=== PATIENT | male | born 1950 | race Caucasian/White ===

== ENCOUNTER 2019-01-16 07:08 | Inpatient (IN) ==
[2019-01-16] MEDS ORDERED: Nitroglycerin 0.4 MG TAB.SUBL SL PRN (07:09)
[2019-01-16] MEDS ORDERED: Aspirin 81 MG TAB.CHEW PO ONE (07:09)
--- NOTE | 2019-01-16 07:21 | Emergency Department Note ---
Disposition Clinical Impression: Atrial fibrillation Qualifiers: Atrial fibrillation type: unspecified Qualified Code(s): I48.91 - Unspecified atrial fibrillation Chest pain Qualifiers: Chest pain type: unspecified Qualified Code(s): R07.9 - Chest pain, unspecified Disposition: Admitted As Inpatient Condition: Fair Time of Disposition: 08:58 General Adult HPI - General Chief complaint: ED Chest Pain Stated complaint: chest pain Time Seen by Provider: 01/16/19 07:09 Source: patient Mode of arrival: ambulatory Limitations: no limitations Nursing Notes Reviewed: Yes Vital Signs Reviewed: Yes - History of Present Illness HPI Narrative: Patient is a 68-year-old male with a past medical history of paroxysmal atrial fibrillation, hypertension, high cholesterol and diabetes presenting to the emergency department for evaluation of a burning sub-sternal chest pain that started approximately 45 minutes prior to arrival as been constant since then. Minutes to associated diaphoresis. Denies nausea, vomiting, radiation of pain or other associated symptoms. He felt fine prior to sleep last night. Over the past week he has had similar symptoms that resolved on their own after minutes. Patient is also a former smoker. He has not has his morning medications. Pain Scale: 3 - Related Data Home Medications Medication Instructions Recorded Confirmed Aspirin Enteric Coated [Aspirin EC] 81 mg PO DAILY 07/09/15 01/16/19 Diltiazem CD (24hr) [Cardizem CD] 180 mg PO DAILY 07/09/15 01/16/19 Pravastatin Sodium [Pravachol] 80 mg PO QPM 07/09/15 01/16/19 Rivaroxaban [Xarelto] 20 mg PO DAILY 07/09/15 01/16/19 Lisinopril-HCTZ 20-12.5 [Prinzide 1 each PO BID 01/16/19 01/16/19 20-12.5] Previous Rx's Medication Instructions Recorded Sotalol [Betapace] 120 mg PO BID #60 tablet 07/10/15 Allergies Allergy/AdvReac Type Severity Reaction Status Date / Time No Known Allergies Allergy Verified 06/07/15 19:32 All systems ED: reviewed and negative except as stated. Review of Systems: As Per HPI Constitutional: Denies: fever Cardiovascular: Reports: chest pain, palpitations, dyspnea on exertion. Denies: orthopnea, edema, syncope, paroxysmal nocturnal dyspnea Respiratory: Reports: dyspnea. Denies: cough, wheezes, hemoptysis, sputum production Gastrointestinal: Denies: abdominal pain, nausea, vomiting, diarrhea Musculoskeletal: Denies: back pain, neck pain Integumentary: Denies: rash Past Medical History - Past Medical History Attestation: Yes The following information was validated with the patient. Medical history: Reports: atrial fibrillation, coronary artery disease, hyperlipidemia, hypertension Surgical history: Reports: orthopedic, other, other Psychiatric history: Reports: no psych history - Social History Smoking Status: Former smoker Smokeless Tobacco Status: No Alcohol use: Reports: rarely Drug use: Reports: none Physical Exam CONSTITUTIONAL: A&O X 3. Skin is clammy. Tachycardic and Hypertensive. HEAD: Normocephalic; atraumatic EYES: PERRL, no scleral icterus NOSE: The nose is normal in appearance without rhinorrhea NECK: No JVD or distended neck veins RESP: Normal chest excursion with respiration; breath sounds clear and equal bilaterally; no wheezes, rhonchi, or rales CARD: Tachycardic. Irregular rhythm, without murmurs, rub or gallop. ABD: Non-distended; non-tender, soft, without rigidity, rebound or guarding,no pulsatile mass CHEST: No pain with palpation SKIN: Normal for age and race; clammy; no apparent lesions EXTREMITIES: Pulses are 2 plus and equal times 4 extremities, no peripheral edema or calf muscle pain - General Limitations: no limitations General appearance: alert, in no apparent distress Course Course Narrative: Patient's presenting for evaluation of chest pain in setting with history of atrial fibrillation which is rate is currently tachycardic and irregular. Plan at this time is for him to undergo a cardiac workup. Upon chart review patient did have stress testing performed in May 2016 in which he is negative for ischemia at that time. It appears that he was seen here in June 2015 for his paroxysmal atrial fibrillation in which she converted with Cardizem drip and they made adjustments to his sotalol. He also has a history of LHC and 2010 which showed mild to moderate nonobstructive CAD. - Reevaluation(s) Reevaluation #1: Patient was given an initial bolus of 10 mg of Cardizem for his atrial fibrillation with improvement of the rate from the 180s down to the 140s and improvement of chest pain. I consulted with cardiology, Dr. Rashid, and he recommended an additional 10 mg bolus no drip is currently at 5 mg per an hour. His lab work was unremarkable and the patient was admitted to the hospitalist service, Dr. Medrano for atrial fibrillation with rapid ventricular response. I discussed with the hospitalist service that the patient will need a dose of his Xeralto once administered before since he did not take his morning dose. Cardiology consult was ordered. Discussed this with the patient and he agrees with the plan. Vital Signs Temperature 98.1 F 01/16/19 07:09 Pulse Rate 137 01/16/19 07:09 Respiratory Rate 20 01/16/19 07:09 Blood Pressure 183/112 01/16/19 07:09 O2 Sat by Pulse Oximetry 99 01/16/19 07:09 Temperature 98.0 F 01/16/19 10:26 Pulse Rate 66 01/16/19 10:26 Respiratory Rate 18 01/16/19 10:26 Blood Pressure 161/85 01/16/19 10:26 O2 Sat by Pulse Oximetry 95 01/16/19 10:26 Oxygen Delivery Oxygen Delivery Room Air Medical Decision Making - Medical Records Medical records reviewed: Yes I reviewed the patient's medical records. - Lab Data Lab results reviewed: Yes I reviewed the patient's lab results. Result diagrams: 01/16/19 07:19 01/16/19 07:19 Lab Results 01/16/19 01/16/19 01/16/19 Range/Units 07:19 07:19 07:50 WBC 8.6 (4.3-11.1) K/mcL RBC 4.87 (4.19-5.50) M/mcL Hgb 15.2 (12.9-16.9) g/dL Hct 45.0 (37.5-50.1) % MCV 92.4 (83.0-100.0) fL MCH 31.2 (28.0-33.3) pg MCHC 33.8 (31.6-35.5) g/dL RDW 12.2 (11.5-14.5) % Plt Count 163 (140-400) K/mcL MPV 10.8 (9.4-12.4) fL Immature Gran % 0.3 (0-4) % Seg Neutrophils % 53.8 % Lymphocytes % 35.7 % Monocytes % 7.3 % Eosinophils % 2.1 % Basophils % 0.8 % Neutrophils # 4.6 (1.6-8.9) K/mcL Lymphocytes # 3.1 (0.6-4.6) K/mcL Monocytes # 0.6 (0.0-1.3) K/mcL Eosinophils # 0.2 (0.0-0.6) K/mcL Basophils # 0.1 (0.0-0.2) K/mcL PT 11.9 (9.4-12.1) Seconds INR 1.1 APTT 32.8 (26.0-36.0) Seconds D-Dimer < 215 (0-500) ng/mLFEU Sodium 144 (136-145) mEq/L Potassium 3.6 (3.5-5.1) mEq/L Chloride 105 (98-107) mEq/L Carbon Dioxide 25 (23-29) mEq/L BUN 21 (8-23) mg/dL Creatinine 0.90 (0.70-1.30) mg/dL Est GFR ( Amer) > 60 (> 60) Est GFR (Non-Af Amer) > 60 (> 60) BUN/Creatinine Ratio 23 (6-26) Glucose 178 H (70-105) mg/dL Calculated Osmolality 305 H (280-300) Calcium 10.5 H (8.6-10.3) mg/dL Troponin I < 0.03 (< 0.04) ng/mL - Radiology Data Radiology results reviewed: Yes I reviewed the patient's radiology results. Chest X-Ray 01/16/19 07:09 IMPRESSION: No acute cardiopulmonary disease. D/ / Geo Chavarria MD / Geo Chavarria MD Interpreting Provider: Geo Chavarria MD - EKG Data EKG #1 EKG attestation: Yes I reviewed and interpreted this EKG. EKG results narrative: EKG done at 7:12 shows atrial fibrillation with RVR at a rate of 148 bpm. Patient has some ST depressions in leads V4 through V6 that are not new when compared to his EKG done upon arrival. EKG #2 EKG attestation: Yes I reviewed and interpreted this EKG. EKG results narrative: EKG done at 7:12 shows atrial fibrillation with RVR at a rate of 148 bpm. Patient has some ST depressions in leads V4 through V6 that are not new when com pared to his EKG done upon arrival.
[2019-01-16] MEDS ORDERED: *HR* FentaNYL (PF) 100 MCG/2 ML VIAL IVP ONE (07:34)
--- NOTE | 2019-01-16 07:40 | Emergency Department Note ---
Disposition Clinical Impression: Atrial fibrillation Qualifiers: Atrial fibrillation type: unspecified Qualified Code(s): I48.91 - Unspecified atrial fibrillation Chest pain Qualifiers: Chest pain type: unspecified Qualified Code(s): R07.9 - Chest pain, unspecified Disposition: Admitted As Inpatient Condition: Fair Referrals: Ariel Aden DO [Primary Care Provider] - Forms: ED Satisfaction Letter Time of Disposition: 09:01 General Adult HPI - General Chief complaint: ED Chest Pain Stated complaint: chest pain Time Seen by Provider: 01/16/19 07:09 Source: patient Mode of arrival: ambulatory Limitations: no limitations - History of Present Illness Pain Scale: 3 - Related Data Home Medications Medication Instructions Recorded Confirmed Aspirin Enteric Coated [Aspirin EC] 81 mg PO DAILY 07/09/15 01/16/19 Diltiazem CD (24hr) [Cardizem CD] 180 mg PO DAILY 07/09/15 01/16/19 Pravastatin Sodium [Pravachol] 80 mg PO QPM 07/09/15 01/16/19 Rivaroxaban [Xarelto] 20 mg PO DAILY 07/09/15 01/16/19 Lisinopril-HCTZ 20-12.5 [Prinzide 1 each PO BID 01/16/19 01/16/19 20-12.5] Previous Rx's Medication Instructions Recorded Sotalol [Betapace] 120 mg PO BID #60 tablet 07/10/15 Allergies Allergy/AdvReac Type Severity Reaction Status Date / Time No Known Allergies Allergy Verified 06/07/15 19:32 Constitutional: Denies: fever Cardiovascular: Reports: chest pain, palpitations, dyspnea on exertion. Denies: orthopnea, edema, syncope, paroxysmal nocturnal dyspnea Respiratory: Reports: dyspnea. Denies: cough, wheezes, hemoptysis, sputum production Gastrointestinal: Denies: abdominal pain, nausea, vomiting, diarrhea Musculoskeletal: Denies: back pain, neck pain Integumentary: Denies: rash Past Medical History - Past Medical History Medical history: Reports: atrial fibrillation, coronary artery disease, hyperlipidemia, hypertension Surgical history: Reports: orthopedic, other, other Psychiatric history: Reports: no psych history - Social History Smoking Status: Former smoker Smokeless Tobacco Status: No Alcohol use: Reports: rarely Drug use: Reports: none Physical Exam - General Limitations: no limitations General appearance: alert, in no apparent distress Course Vital Signs Temperature 98.1 F 01/16/19 07:09 Pulse Rate 137 01/16/19 07:09 Respiratory Rate 20 01/16/19 07:09 Blood Pressure 183/112 01/16/19 07:09 O2 Sat by Pulse Oximetry 99 01/16/19 07:09 Temperature 98.1 F 01/16/19 07:09 Pulse Rate 153 01/16/19 08:27 Respiratory Rate 20 01/16/19 08:27 Blood Pressure 170/128 01/16/19 08:27 O2 Sat by Pulse Oximetry 98 01/16/19 08:27 Oxygen Delivery Oxygen Delivery Room Air Medical Decision Making - Lab Data Result diagrams: 01/16/19 07:19 01/16/19 07:19 Lab Results 01/16/19 01/16/19 01/16/19 Range/Units 07:19 07:19 07:50 WBC 8.6 (4.3-11.1) K/mcL RBC 4.87 (4.19-5.50) M/mcL Hgb 15.2 (12.9-16.9) g/dL Hct 45.0 (37.5-50.1) % MCV 92.4 (83.0-100.0) fL MCH 31.2 (28.0-33.3) pg MCHC 33.8 (31.6-35.5) g/dL RDW 12.2 (11.5-14.5) % Plt Count 163 (140-400) K/mcL MPV 10.8 (9.4-12.4) fL Immature Gran % 0.3 (0-4) % Seg Neutrophils % 53.8 % Lymphocytes % 35.7 % Monocytes % 7.3 % Eosinophils % 2.1 % Basophils % 0.8 % Neutrophils # 4.6 (1.6-8.9) K/mcL Lymphocytes # 3.1 (0.6-4.6) K/mcL Monocytes # 0.6 (0.0-1.3) K/mcL Eosinophils # 0.2 (0.0-0.6) K/mcL Basophils # 0.1 (0.0-0.2) K/mcL PT 11.9 (9.4-12.1) Seconds INR 1.1 APTT 32.8 (26.0-36.0) Seconds D-Dimer < 215 (0-500) ng/mLFEU Sodium 144 (136-145) mEq/L Potassium 3.6 (3.5-5.1) mEq/L Chloride 105 (98-107) mEq/L Carbon Dioxide 25 (23-29) mEq/L BUN 21 (8-23) mg/dL Creatinine 0.90 (0.70-1.30) mg/dL Est GFR ( Amer) > 60 (> 60) Est GFR (Non-Af Amer) > 60 (> 60) BUN/Creatinine Ratio 23 (6-26) Glucose 178 H (70-105) mg/dL Calculated Osmolality 305 H (280-300) Calcium 10.5 H (8.6-10.3) mg/dL Troponin I < 0.03 (< 0.04) ng/mL Critical Care Time Critical Care Time: Yes Total Critical Care Time: 40 Attestation: Critical care performed: Time is exclusive of separately billable procedures. Time includes: direct patient care, patient reassessment, coordination of patient care, interpretation of data (laboratory data, radiology data, and respiratory data), review of patient's medical records, medical consultation and documentation of patient care. Procedures included in critical care time: Procedures excluded from critical care time: Attestation Statement - Attestation Attestation: I examined this patient and my medical decision-making was reviewed with the Resident Physician. I agree with the documented findings, disposition and treatment plan as described except to the extent set forth below. Patient presents to the ED with chief complaint of chest pain. Patient has been having some intermittent episodes over the past couple weeks that her exertional when he cut the grass. Today it is continuous. He has a history of paroxysmal A. fib. Went back and atrial fibrillation today. He takes sotalol Cardizem home. On examination he appears in mild distress. Diaphoretic. Heart rate in the 160s. Blood pressure in the 170s to 180s. Heart tachycardia and regular. Plan. Cardizem push and drip ordered. We will give him some fentanyl for the chest pain. EKG reviewed with Dr. roach. The patient is in A. fib with RVR. He does have some ST depressions, but it is difficult self these are rate dependent or ischemic. We will repeat an EKG with patient has better rate control. Aspirin given. Patient is feeling better. He is on a Cardizem drip at this time. He was given another IV bolus after discussing with cardiology. He is admitted to medicine. Repeat EKG was also reviewed with the resident with no ST elevations. He does still have these depressions. Troponin is negative. Cardiology has been consu lt and will see as inpatient. Chest X-Ray 01/16/19 07:09 IMPRESSION: No acute cardiopulmonary disease. D/ / 01/16/2019 08:42:28 Geo Chavarria MD / syl Interpreting Provider: Geo Chavarria MD
[2019-01-16 07:50] LABS: Basophils # 0.1 K/mcL (0.0-0.2); Basophils % 0.8 %; Eosinophils # 0.2 K/mcL (0.0-0.6); Eosinophils % 2.1 %; Hemoglobin 15.2 g/dL (12.9-16.9); Immature Granulocytes % 0.3 % (0-4); Lymphocytes # 3.1 K/mcL (0.6-4.6); Lymphocytes % 35.7 %; Mean Corpuscular HGB Conc 33.8 g/dL (31.6-35.5); Mean Corpuscular Hemoglobin 31.2 pg (28.0-33.3); Mean Corpuscular Volume 92.4 fL (83.0-100.0); Mean Platelet Volume 10.8 fL (9.4-12.4); Monocytes # 0.6 K/mcL (0.0-1.3); Monocytes % 7.3 %; Neutrophils # 4.6 K/mcL (1.6-8.9); Platelet Count 163 K/mcL (140-400); Red Blood Count 4.87 M/mcL (4.19-5.50); Red Cell Distribution Width 12.2 % (11.5-14.5); Segmented Neutrophils % 53.8 %
[2019-01-16 08:02] LABS: BUN/Creatinine Ratio 23 (6-26); Blood Urea Nitrogen 21 mg/dL (8-23); Calcium 10.5 mg/dL (8.6-10.3); Carbon Dioxide 25 mEq/L (23-29); Chloride 105 mEq/L (98-107); Glucose 178 mg/dL (70-105); Osmolality,Calculated 305 (280-300); Potassium 3.6 mEq/L (3.5-5.1); Sodium 144 mEq/L (136-145); Troponin I < 0.03 ng/mL (< 0.04); eGFR For Non-African Americans > 60 (> 60)
[2019-01-16 08:03] LABS: INR 1.1; Prothrombin Time 11.9 Seconds (9.4-12.1)
[2019-01-16 08:06] LABS: Activated Partial Thrombo Time 32.8 Seconds (26.0-36.0)
[2019-01-16 08:23] LABS: D-Dimer < 215 ng/mLFEU (0-500)
[2019-01-16] MEDS ORDERED: 0.9 % Sodium Chloride 1,000 ML ONE (09:05)
[2019-01-16] MEDS ORDERED: Acetaminophen 325 MG TABLET PO PRN (11:21)
[2019-01-16] MEDS ORDERED: Naloxone 0.4 MG/ML INJ IVP PRN (11:21)
[2019-01-16] MEDS ORDERED: Ondansetron 4 MG/2 ML VIAL IVP PRN (11:21)
--- NOTE | 2019-01-16 11:27 | Internal Med History&Physical ---
<Allen Guadalupe - Last Filed: 01/16/19 17:07> Date of Encounter: 01/16/19 Time of Encounter: 11:15 Internal Medicine - H&P: HPI Chief complaint: A. fib RVR Admitted From: Emergency Dept Plans for Post Hospital Care: Home History of present illness: Mr. Hinojosa is a 68 year old male with a past medical history of hypertension, hyperlipidemia, diabetes mellitus, and A. fib on Sotalol and Xarelto who presented to the ED complaining of palpitations, intermittent chest pain, and generalized weakness since this morning. Patient reports compliance with his oral Cardizem and Sotalol. Patient reports is heart rate got up to 170 with associated left-sided pressure-like chest pain radiating to his neck. Ches t pain is intermittent associated with exertion, and resolves with rest. Patient is chest pain free at this time. He also reports he quit smoking 30 days ago. In the ED, EKG revealed A. fib RVR with ST depressions in lateral leads. Patient was started on Cardizem drip. CXR revealed no acute cardiopulmonary disease. Cardiology has been consulted. Past Med Surg Social Fam HX - Past Medical History Medical history: atrial fibrillation, coronary artery disease, hyperlipidemia, hypertension Psychiatric history: no psych history - Past Surgical History Surgical History: orthopedic, other (Ankle), other Additional surgical history: heart cath - Social History Smoking Status: Former smoker Smokeless Tobacco Status: No Alcohol use: rarely Drug use: none - Family History Sister Adopted: No Family Member Ethnicity: Non- Living Status: Still Living Hx Family Cardiac Disorders: Yes Hx Family Respiratory Disorders: No Hx Family Cancer: No Hx Family GI Disorders: No Hx Family Endocrine Disorder: No Hx Family Neuromuscular Disorders: No Hx Family Neurologic Disorders: No Hx Family HEENT Disorders: No Hx Family Autoimmune Disorders: No Father Living Status: Age at : 87 Cause of : old age Hx Family Cardiac Disorders: No Mother Living Status: Age at : 76 Hx Family Cardiac Disorders: Yes (CAD, CABG) Hx Family Endocrine Disorder: Yes (DM) Internal Medicine - H&P: Meds Pravastatin Sodium [Pravachol] 80 mg PO HS 07/09/15 [History] Rivaroxaban [Xarelto] 20 mg PO DAILY 07/09/15 [History] Aspirin [Adult Aspirin Regimen] 81 mg PO QAM 01/16/19 [History] Diltiazem HCl [Diltiazem ER] 180 mg PO DAILY 01/16/19 [History] Lisinopril-HCTZ 20-12.5 [Prinzide 20-12.5] 1 tab PO BID 01/16/19 [History] Metformin HCl [Glucophage] 500 mg PO BIDWM 01/16/19 [History] Sotalol HCl [Betapace AF] 120 mg PO BID 01/16/19 [History] Allergy/AdvReac Type Severity Reaction Status Date / Time No Known Allergies Allergy Verified 01/16/19 16:40 All Systems PM: A 10-system review of systems was performed and is negative for pertinent findings except as documented above in the HPI. - Constitutional Constitutional: fatigue, weakness, no chills, no fever(s) - EENT Eyes: no blurry vision, no diplopia Nose, mouth and throat: no sinus pain, no sore throat - Cardiovascular Cardiovascular ROS IM: chest pain, irregular heart rhythm, palpitations, no dyspnea, no dyspnea on exertion, no edema, no syncope - Respiratory Respiratory: wheezing, no cough, no dyspnea - Gastrointestinal Gastrointestinal: no diarrhea, no heartburn, no nausea, no vomiting - Genitourinary Genitourinary ROS male: no difficulty urinating, no urinary frequency, no urinary urgency - Musculoskeletal Musculoskeletal ROS IM: no neck pain, no numbness, no tingling - Integumentary Integumentary IM: no new lesions, no rash - Neurological Neurological ROS: weakness, no numbness, no tingling - Psychiatric Psychiatric: no anxiety, no depression - Endocrine Endocrine IM: no polydipsia, no polyphagia, no polyuria - Constitutional Vitals: Temp Pulse Resp BP Pulse Ox 97.9 F 91 18 138/95 97 01/16/19 11:16 01/16/19 11:16 01/16/19 11:16 01/16/19 11:16 01/16/19 11:16 General appearance: Present: cooperative, A&O X 3, pleasant, no acute distress, answers questions appropriately Exam: awake - Head Head exam: Present: atraumatic, normocephalic - Eye Eye exam: Present: EOMI, conjuntiva pink, sclera anicteric. Absent: PERRL Pupils: Absent: PERRL - ENT ENT exam: Present: mucous membranes moist, normal oropharynx - Neck Neck exam general surgery: Present: supple, trachea midline - Respiratory Respiratory exam: Present: wheezes (Mild right greater than left). Absent: accessory muscle use, rales, rhonchi - Cardiovascular Cardiovascular exam: Present: irregular rhythm, +S1, +S2. Absent: diastolic murmur, gallop, rubs, systolic murmur - GI/Abdominal GI/Abdominal exam: Present: normal bowel sounds, soft, no peritoneal signs. Absent: distended, guarding, tenderness - Extremities Exam Extremities exam: Present: warm, radial pulses palpable and symmetrical. Absent: calf tenderness, cyanotic, pedal edema - Back Exam Back exam: Present: normal inspection. Absent: paraspinal tenderness, tenderness - Neurological Exam Neurological exam: Present: alert, CN II-XII intact, oriented X3, no focal deficits. Absent: facial droop, speech deficit - Psychiatric Psychiatric exam: Present: normal affect, normal mood - Skin Skin exam: Present: dry, intact, warm Internal Med - H&P Results - Labs CBC & Chem 7: 01/16/19 07:19 01/16/19 07:19 Labs: Short CBC 01/16/19 Range/Units 07:19 WBC 8.6 (4.3-11.1) K/mcL Hgb 15.2 (12.9-16.9) g/dL Hct 45.0 (37.5-50.1) % Plt Count 163 (140-400) K/mcL Neutrophils # 4.6 (1.6-8.9) K/mcL BMP 01/16/19 07:19 Sodium 144 Potassium 3.6 Chloride 105 Carbon Dioxide 25 BUN 21 Creatinine 0.90 Glucose 178 H Calcium 10.5 H Cardiac Enzymes 01/16/19 Range/Units 07:19 Troponin I < 0.03 (< 0.04) ng/mL - Pulse Oximetry Interpretation Digit-Finger O2 Sat by Pulse Oximetry: 97 (On Ambient care) Actions taken: none - EKG Data -: EKG Interpreted by Myself Rate: tachycardia (Atrial fibrillation, heart rate 148, ST depressions in leads V4, V5, and V6) - EKG Data Prior EKG available for review: yes When compared to previous EKG: there are significant changes (Atrial fibrillation) - Impressions ITS Impressions Chest X-Ray 01/16/19 07:09 IMPRESSION: No acute cardiopulmonary disease. D/ / 01/16/2019 08:42:28 Geo Chavarria MD / syl Interpreting Provider: Geo Chavarria MD - Assessment and Plan (1) Atrial fibrillation Current Visit: Yes Status: Acute Assessment and plan: Patient with history of atrial fibrillation on Cardizem, Sotalol, and Xarelto. Blood pressure stable. Patient had AYAAN cardioversion in May 2015. Continue Cardizem drip Cardiology following. Qualifiers: Atrial fibrillation type: paroxysmal Qualified Code(s): I48.0 - Paroxysmal atrial fibrillation (2) Troponin level elevated Current Visit: Yes Status: Acute Assessment and plan: Patient with exertional chest pain, history of CAD, and EKG reveals ST depressions in lateral leads. Initial troponin < 0.03, 0.31, repeat troponin level pending Patient was started on heparin drip. Continue aspirin. NPO after midnight, anticipate [facility] tomorrow per cardiology. (3) CAD (coronary artery disease) Current Visit: Yes Status: Chronic Assessment and plan: TTE 06/08/2015: EF 60-65%. No evidence of pulmonary hypertension. No significant valvular dysfunction. Pharmacological nuclear stress test 06/16/2016: Negative for ischemia or prior infarct. Gated EF 66%. Continue aspirin. Resume beta john once cleared by cardiology. Qualifiers: Coronary Disease-Associated Artery/Lesion type: [place] artery [place] vs. transplanted heart: [place] heart Associated angina: without angina Qualified Code(s): I25.10 - Atherosclerotic heart disease of [place] coronary artery without angina pectoris (4) HTN (hypertension) Current Visit: Yes Status: Chronic Assessment and plan: Blood pressure stable. Resume beta john once cleared by cardiology Qualifiers: Hypertension type: essential hypertension Qualified Code(s): I10 - Essential (primary) hypertension (5) HLD (hyperlipidemia) Current Visit: Yes Status: Chronic Assessment and plan: Continue statin. Qualifiers: Hyperlipidemia type: unspecified Qualified Code(s): E78.5 - Hyperlipidemia, unspecified (6) DVT prophylaxis Current Visit: Yes Status: Acute Assessment and plan: Heparin drip - Time Spent With Patient Total time spent is greater than 50% in coordination of care (as documented) at patient's floor/unit and/or counseling patient: <Pura Medrano - Last Filed: 01/17/19 11:13> Date of Encounter: 01/16/19 Internal Medicine - H&P: HPI History of present illness: Mr. Hinojosa is a 68 year old male All Systems PM: A 10-system review of systems was performed and is negative for pertinent findings except as documented above in the HPI. - Constitutional Vitals: Temp Pulse Resp BP Pulse Ox 98.0 F 110 16 128/76 96 01/17/19 07:07 01/17/19 07:07 01/17/19 07:07 01/17/19 07:07 01/17/19 07:07 Internal Med - H&P Results - Labs CBC & Chem 7: 01/17/19 02:29 01/17/19 02:29 Labs: Short CBC 01/17/19 Range/Units 02:29 WBC 10.8 (4.3-11.1) K/mcL Hgb 14.1 (12.9-16.9) g/dL Hct 41.2 (37.5-50.1) % Plt Count 164 (140-400) K/mcL BMP 01/17/19 02:29 Sodium 142 Potassium 3.1 L Chloride 104 Carbon Dioxide 26 BUN 16 Creatinine 0.72 Glucose 133 H Calcium 9.9 Cardiac Enzymes 01/16/19 01/16/19 01/17/19 Range/Units 13:17 19:16 02:29 Troponin I 0.31 H* 1.17 H* 1.22 H* (< 0.04) ng/mL Liver Function 01/16/19 01/17/19 Range/Units 12:11 02:29 Total Bilirubin 0.8 (0.3-1.0) mg/dL AST 22 (13-39) Units/L ALT 29 (7-52) Units/L Alkaline Phosphatase 55 (34-104) Units/L Albumin 4.6 4.5 (3.5-5.7) g/dL - Impressions ITS Impressions Chest X-Ray 01/16/19 07:09 IMPRESSION: No acute cardiopulmonary disease. D/ / 01/16/2019 08:42:28 Geo Chavarria MD / syl Interpreting Provider: Geo Chavarria MD - Assessment and Plan (1) Troponin level elevated Current Visit: Yes Status: Acute (2) Atrial fibrillation Current Visit: Yes Status: Acute Qualifiers: Atrial fibrillation type: paroxysmal Qualified Code(s): I48.0 - Paroxysmal atrial fibrillation (3) CAD (coronary artery disease) Current Visit: Yes Status: Chronic Qualifiers: Coronary Disease-Associated Artery/Lesion type: [place] artery [place] vs. transplanted heart: [place] heart Associated angina: without angina Qualified Code(s): I25.10 - Atherosclerotic heart disease of [place] coronary artery without angina pectoris (4) HLD (hyperlipidemia) Current Visit: Yes Status: Chronic Qualifiers: Hyperlipidemia type: unspecified Qualified Code(s): E78.5 - Hyperlipidemia, unspecified (5) HTN (hypertension) Current Visit: Yes Status: Chronic Qualifiers: Hypertension type: essential hypertension Qualified Code(s): I10 - Essential (primary) hypertension (6) DVT prophylaxis Current Visit: Yes Status: Acute - Time Spent With Patient Total time spent is greater than 50% in coordination of care (as documented) at patient's floor/unit and/or counseling patient: - Attending Attestation I personally and independently interviewed and examined the patient, and I reviewed the patient's medical records. I am in agreement with the assessment and proposed treatment plan. I discussed my findings and recommendation with the patient and answer his questions. The patient's medical records were edited to accurately reflect this encounter.
[2019-01-16] MEDS ORDERED: Aspirin Enteric Coated 81 MG Tablet PO SCH (11:30)
[2019-01-16] MEDS ORDERED: Lisinopril-HCTZ 20-12.5mg TABLET PO SCH (11:30)
[2019-01-16] MEDS ORDERED: Dextrose Gel 15 GM/37.5 ML TUBE PO PRN ×2 (11:32)
[2019-01-16] MEDS ORDERED: *HR* Dextrose 50 % in Water (Syg) 50 ML SYRINGE IVP PRN (11:32)
[2019-01-16] MEDS ORDERED: D5% in Water 1,000 ML IVC PRN (11:32)
[2019-01-16 12:41] LABS: Albumin 4.6 g/dL (3.5-5.7); Magnesium 1.6 mg/dL (1.6-2.6)
--- NOTE | 2019-01-16 12:56 | Cardiology Consult Note ---
Date of Encounter: 01/16/19 Time of Encounter: 12:54 Assessment and Plan (1) Chest pain Current Visit: Yes Status: Acute Chest pain started this morning described as burning and aching with radiation to left neck and shoulder. In ED he was found to be in A-Fib RVR. Pt reports over the past few weeks he has noticed exertional chest discomfort relieved with rest when walking to his mailbox and trying to push mow his yard. Initial troponin negative. Trend for total of 3. Hx of nonobstructive CAD on [facility] ~10 years ago. TTE 06/08/2015 EF 60-65%. No phtn . No significant valvular dysfunction.. Pharmacological nuclear stress test 06/16/2016: Negative for ischemia or prior infarct. Gated EF 66%. Ischemic evaluation will depend on troponin trend (stress vs LHC). Plan to recheck TTE once HR improves. Qualifiers: Chest pain type: unspecified Qualified Code(s): R07.9 - Chest pain, unspecified (2) Atrial fibrillation with RVR Current Visit: Yes Status: Acute Known hx of PAF. DCCV in 2014. On Sotalol 120mg BID. Anticoagulated on Xarelto. Will hold Sotalol for now. Presents in A-Fib RVR rate 140s at bedside. On Cardizem gtt at 10mg/hr. Will bolus with 10mg cardizem IV and increase gtt to 15mg/hr. Plan to hold Xarelto pending ischemic eval and start heparin gtt. Discussion w patient/family: The assessment and plan as outlined above was discussed with the patient and/or family members who expressed understanding and agreement. All questions were answered. Thank you for involving us in the care of your patient. Please call with any questions. I will discuss all the above with Dr. Rashid and make changes as needed. History of Present Illness Consult date: 01/16/19 Consult reason: chest pain, A-Fib RVR Chief complaint: chest pain History of present illness: Mr. Hinojosa is a 68 year old male with PMH of nonobstructive CAD, PAF (Xarelto, Sotalol), HTN, HLD, and tobacco use. He was placed on sotalol and underwent a successful AYAAN guided cardioversion in May 2015. He presents to ED for chest pain that started this morning described as burning and aching with radiation to left neck and shoulder. In ED he was found to be in A-Fib RVR. Pt reports over the past few weeks he has noticed exertional chest discomfort relieved with rest when walking to his mailbox and trying to push mow his yard. Initial troponin negative. Currently on cardizem gtt at 10mg/hr. Previous studies: TTE 06/08/2015: EF 60-65%. No evidence of pulmonary hypertension. No significant valvular dysfunction. Pharmacological nuclear stress test 11/2011: Negative for ischemia or prior in farct. Gated EF 74%. Pharmacological nuclear stress test 06/16/2016: Negative for ischemia or prior infarct. Gated EF 66%. Holter monitor 03/03/2016: Sinus rhythm with average heart rate is 68. Occasional PACs. No ventricular ectopy. Past Med Surg Social Fam HX - Past Medical History Medical history: atrial fibrillation, coronary artery disease, hyperlipidemia, hypertension Psychiatric history: no psych history - Past Surgical History Surgical History: orthopedic, other, other Additional surgical history: heart cath - Social History Smoking Status: Former smoker Smokeless Tobacco Status: No Alcohol use: rarely Drug use: none - Family History Sister Adopted: No Family Member Ethnicity: Non- Living Status: Still Living Hx Family Cardiac Disorders: Yes Hx Family Respiratory Disorders: No Hx Family Cancer: No Hx Family GI Disorders: No Hx Family Endocrine Disorder: No Hx Family Neuromuscular Disorders: No Hx Family Neurologic Disorders: No Hx Family HEENT Disorders: No Hx Family Autoimmune Disorders: No Father Living Status: Mother Living Status: Medications and Allergies Aspirin Enteric Coated [Aspirin EC] 81 mg PO DAILY 07/09/15 [History] Diltiazem CD (24hr) [Cardizem CD] 180 mg PO DAILY 07/09/15 [History] Pravastatin Sodium [Pravachol] 80 mg PO QPM 07/09/15 [History] Rivaroxaban [Xarelto] 20 mg PO DAILY 07/09/15 [History] Sotalol [Betapace] 120 mg PO BID #60 tablet 07/10/15 [Rx] Lisinopril-HCTZ 20-12.5 [Prinzide 20-12.5] 1 each PO BID 01/16/19 [History] Allergy/AdvReac Type Severity Reaction Status Date / Time No Known Allergies Allergy Verified 10/09/15 19:32 All Systems Review: The remainder of the systems were reviewed and are negative - Cardiovascular Cardiovascular: as per HPI, chest pain at rest, chest pain with exertion, radiating jaw, neck or arm pain Physical Examination Vital Signs, Last 4 Hours Temp Pulse Resp BP Pulse Ox 01/16/19 11:16 97.9 F 91 18 138/95 97 01/16/19 10:26 98.0 F 66 18 161/85 95 01/16/19 09:38 118 20 145/92 97 01/16/19 08:59 126 20 149/95 98 Vital Signs Temp Pulse Resp BP Pulse Ox 01/16/19 11:16 97.9 F 91 18 138/95 97 01/16/19 10:26 98.0 F 66 18 161/85 95 01/16/19 09:38 118 20 145/92 97 01/16/19 08:59 126 20 149/95 98 01/16/19 08:27 153 20 170/128 98 01/16/19 07:58 137 20 149/114 98 01/16/19 07:09 98.1 F 137 20 183/112 99 Intake and Output 01/15/19 01/16/19 01/16/19 23:59 07:59 15:59 Intake Total 265.6 / 265.6 Balance 265.6 / 265.6 Intake: IV Fluids 25.6 / 25.6 Cardizem 50 MG In 0.9 % Sodium 25.6 / 25.6 Chloride 40 ML @ 5 MG/HR 5 mls/ hr IVC CONT MIKAELA Rx#:[id number] Oral 240 / 240 Other: Meal Lunch Percent of Meal Consumed 100% Weight 95.254 kg Patient Weight 01/16/19 23:59 Weight 95.254 kg General: Conversant, No Apparent Distress HEENT: Atraumatic, Normocephaly, Mucus Membranes Moist Neck: Normal carotid pulses Cardiac: Other (irregular irregular) Lungs: Normal Breath Sounds, No Wheeze, Rales, Rhonchi Neuro: Alert and responsive, No focal deficits noted Abdomen: Soft, Non-Tender Skin: No rashes noted on visualized skin Musculoskeletal: No Chest Wall Tenderness Extremities: No Clubbing, No Cyanosis, No Edema, Normal Pulses Results 01/16/19 07:19 01/16/19 07:19 Lab Results 01/16/19 01/16/19 01/16/19 07:19 07:19 07:50 WBC 8.6 Hgb 15.2 Hct 45.0 Plt Count 163 INR 1.1 APTT 32.8 D-Dimer < 215 Sodium 144 Potassium 3.6 Chloride 105 Carbon Dioxide 25 BUN 21 Creatinine 0.90 Glucose 178 H Calcium 10.5 H Magnesium Troponin I < 0.03 01/16/19 12:11 WBC Hgb Hct Plt Count INR APTT D-Dimer Sodium Potassium Chloride Carbon Dioxide BUN Creatinine Glucose Calcium Magnesium 1.6 Troponin I Short CBC 01/16/19 Range/Units 07:19 WBC 8.6 (4.3-11.1) K/mcL Hgb 15.2 (12.9-16.9) g/dL Hct 45.0 (37.5-50.1) % Plt Count 163 (140-400) K/mcL Neutrophils # 4.6 (1.6-8.9) K/mcL BMP 01/16/19 Range/Units 07:19 Sodium 144 (136-145) mEq/L Potassium 3.6 (3.5-5.1) mEq/L Chloride 105 (98-107) mEq/L Carbon Dioxide 25 (23-29) mEq/L BUN 21 (8-23) mg/dL Creatinine 0.90 (0.70-1.30) mg/dL Glucose 178 H (70-105) mg/dL Calcium 10.5 H (8.6-10.3) mg/dL Cardiac Enzymes 01/16/19 Range/Units 07:19 Troponin I < 0.03 (< 0.04) ng/mL Liver Function 01/16/19 Range/Units 12:11 Albumin 4.6 (3.5-5.7) g/dL Impressions Chest X-Ray 01/16/19 07:09 IMPRESSION: No acute cardiopulmonary disease. D/ / 01/16/2019 08:42:28 Geo Chavarria MD / syl Interpreting Provider: Geo Chavarria MD Active Medications Acetaminophen (Tylenol) 650 mg PO Q6HR PRN PRN Reason: Mild Pain/Fever Stop: 07/18/19 11:22 Aspirin (Aspirin Ec) 81 mg PO DAILY MIKAELA Stop: 07/19/19 09:01 Atorvastatin Calcium (Lipitor) 20 mg PO QPM MIKAELA Stop: 07/18/19 18:01 Dextrose/Water (Dextrose 50% (Syg)) 25 ml IVP AD PRN PRN Reason: Hypoglycemia Stop: 07/18/19 11:33 Docusate Sodium (Colace) 100 mg PO BID PRN PRN Reason: Constipation Stop: 07/18/19 21:01 Glucagon (Glucagen) 1 mg IM ONCE PRN PRN Reason: Hypoglycemia Stop: 07/18/19 11:33 Glucose (Gluctose) 15 gm PO ONCE PRN PRN Reason: Hypoglycemia Stop: 07/18/19 11:33 Glucose (Gluctose) 30 gm PO ONCE PRN PRN Reason: Hypoglycemia Stop: 07/18/19 11:33 Lisinopril/HCTZ (Prinzide 20-12.5) 1 each PO BID MIKAELA Stop: 07/18/19 11:31 Last Admin: 01/16/19 12:15 Dose: 1 each Documented by: Diltiazem HCl 50 mg/ Sodium (Chloride) 50 mls @ 5 mls/hr IVC CONT MIKAELA; Protocol Stop: 07/18/19 07:46 Last Infusion: 01/16/19 12:16 Dose: 10 mg/hr, 10 mls/hr Documented by: Dextrose (Dextrose 5%) 1,000 mls @ 100 mls/hr IVC .Q10H PRN PRN Reason: HYPOGLYCEMIA Stop: 07/18/19 11:33 Insulin Human Lispro (Humalog) 0 units SQ HS MIKAELA; Protocol Stop: 07/18/19 21:01 Insulin Human Lispro (Humalog) 0 units SQ TIDAC MIKAELA; Protocol Stop: 07/18/19 16:31 Naloxone HCl (Narcan) 0.4 mg IVP Q2MPRN PRN PRN Reason: SEE COMMENTS Stop: 07/18/19 11:22 Ondansetron HCl (Zofran) 4 mg IVP Q6HR PRN PRN Reason: Nausea And Vomiting Stop: 07/18/19 11:22 Rivaroxaban (Xarelto) 20 mg PO DAILY@1700 MIKAELA Stop: 07/18/19 17:01 - Imaging and Cardiology Stress Test: report reviewed Echo: report reviewed Consult Discharge Plan - Plan Referrals: Ariel Aden DO [Primary Care Provider] -
[2019-01-16 14:13] LABS: Thyroid Stimulating Hormone 0.707 mcIU/mL (0.340-5.600)
[2019-01-16] MEDS ORDERED: *HR* Heparin 5,000 UNIT/ML VIAL IVP PRN ×2 (14:24)
[2019-01-16] MEDS ORDERED: *HR* Heparin 5,000 UNIT/ML VIAL IVP ONE (14:24)
--- NOTE | 2019-01-16 14:47 | Electrocardiograph Report ---
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
[2019-01-16] MEDS: Heparin 25,000 UNIT/250 ML D5W 25,000 UNIT/250 ML IV.SOLN IVC SCH (15:58)
[2019-01-16] MEDS: Insulin LISPRO 300 UNITS/3 ML VIAL SQ SCH ×2 (16:43→21:11)
[2019-01-16] MEDS ORDERED: *HR* Rivaroxaban 10 MG TABLET PO SCH (17:00)
--- NOTE | 2019-01-16 17:47 | Electrocardiograph Report ---
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
[2019-01-17 03:16] LABS: Hematocrit 41.2 % (37.5-50.1); Hemoglobin 14.1 g/dL (12.9-16.9); Mean Corpuscular HGB Conc 34.2 g/dL (31.6-35.5); Mean Corpuscular Hemoglobin 30.9 pg (28.0-33.3); Mean Corpuscular Volume 90.2 fL (83.0-100.0); Platelet Count 164 K/mcL (140-400); Red Blood Count 4.57 M/mcL (4.19-5.50)
[2019-01-17 03:36] LABS: Alanine Aminotransferase 29 Units/L (7-52); Albumin 4.5 g/dL (3.5-5.7); Albumin/Globulin Ratio 2.1 (1.1-2.2); Alkaline Phosphatase 55 Units/L (34-104); Aspartate Amino Transferase 22 Units/L (13-39); BUN/Creatinine Ratio 22 (6-26); Bilirubin,Total 0.8 mg/dL (0.3-1.0); Blood Urea Nitrogen 16 mg/dL (8-23); Calcium 9.9 mg/dL (8.6-10.3); Carbon Dioxide 26 mEq/L (23-29); Chloride 104 mEq/L (98-107); Globulin 2.1 g/dL (2.4-3.5); Glucose 133 mg/dL (70-105); Osmolality,Calculated 297 (280-300); Potassium 3.1 mEq/L (3.5-5.1); Sodium 142 mEq/L (136-145); Total Protein 6.6 g/dL (6.4-8.9); eGFR For Non-African Americans > 60 (> 60)
[2019-01-17] MEDS ORDERED: *HR* Metoprolol 5 MG/5 ML VIAL IVP ONE (08:15)
[2019-01-17] MEDS: Lisinopril-HCTZ 20-12.5mg TABLET PO SCH (08:23)
[2019-01-17] MEDS: Aspirin Enteric Coated 81 MG Tablet PO SCH (08:24)
[2019-01-17] MEDS: Insulin LISPRO 300 UNITS/3 ML VIAL SQ SCH ×4 (08:24→21:33)
[2019-01-17] MEDS: Heparin 25,000 UNIT/250 ML D5W 25,000 UNIT/250 ML IV.SOLN IVC SCH (08:25)
[2019-01-17] MEDS ORDERED: *HR* Heparin 10,000 UNIT/10 ML VIAL ONE (13:14)
[2019-01-17] MEDS ORDERED: 0.9 % Sodium Chloride 1,000 ML ONE ×3 (13:14→20:19)
[2019-01-17] MEDS ORDERED: Heparin 1,000 UNITS/500 mL 500 ML ONE (13:14)
[2019-01-17] MEDS ORDERED: ISOVUE-370 200 ML INFUS..BTL ONE ×2 (13:14→15:06)
[2019-01-17] MEDS ORDERED: Nitroglycerin 1,000 MCG/10 ML VIAL IV ONE (13:14)
--- NOTE | 2019-01-17 13:18 | Pre-Sedation Evaluation ---
Pre-sedation evaluation - Pre-sedation checklist Date of procedure: 01/17/19 Procedure: heart cath Recent Vitals: Last Vital Signs Temp 98.2 F 01/17/19 11:14 Pulse 86 01/17/19 11:14 Resp 14 01/17/19 11:14 BP 121/80 01/17/19 11:14 Pulse Ox 97 01/17/19 11:14 H&P (including ROS) documented in medical record: Yes Previous reaction to sedatives/anesthetics: No Dietary Status: NPO after Midnight Airway Assessment: Patient can open mouth completely, TMJ function normal, Micrognathia (under-bite, receding chin) absent, Neck with adequate range of motion Dentition: No loose teeth or bridges Possible difficult airway: No ASA Classification *see protocol: CLASS II-Mild systemic disease Plan of Care: Pt appropriate candidate for procedure/moderate/conscious sedation, Risks/benefits of procedure/sedation discussed w/ patient/family Cardiac Registry (Cardio Only) - Functional Capacity Functional Capacity: < 4 METS - Clincal Frailty Scale Clinical Frailty Scale: Vulnerable
[2019-01-17] MEDS ORDERED: *HR* FentaNYL (PF) 100 MCG/2 ML VIAL ONE (13:36)
[2019-01-17] MEDS ORDERED: *HR* Midazolam HCl 2 MG/2 ML VIAL ONE (13:36)
[2019-01-17] MEDS ORDERED: *HR* Bivalirudin 250 MG VIAL IVC ONE ×2 (14:37→15:06)
--- NOTE | 2019-01-17 14:49 | Internal Med Progress Note ---
Hospitalist Progress Note - Encounter Date of Encounter: 01/17/19 Time of Encounter: 08:00 - Subjective Interval History: Patient was seen and examined at bedside. at bedside. All questions answered. He denies any acute events overnight. Continues to have palpitations, denies chest pain or shortness of breath. He understands that he is to remain nothing by mouth for heart catheterization today. Denies headache, has had no loss of function of his extremities. Denies leg swelling or orthopnea - Exam Vitals: Temp Pulse Resp BP Pulse Ox 98.2 F 86 14 121/80 97 01/17/19 11:14 01/17/19 11:14 01/17/19 11:14 01/17/19 11:14 01/17/19 11:14 Exam: General: Patient is alert, oriented, no acute distress, Head: atraumatic, normocephalic, Eye: normal appearance, PERRL, no scleral icterus, no conjunctival injection ENT: mucous membranes moist, normal external ear exam Neck: normal inspection, trachea midline, full ROM, no carotid bruits Chest: normal inspection, symmetric chest rise Respiratory: Good respiratory effort. Bilateral breath sounds are clear without wheezing, crackles, or rhonchi. Cardiovascular: Irregularly irregular s1 and s2 No clicks, rubs, gallops, or murmors. Abdomen: Bowel sounds present normoactive x-4 quadrants. Abdomen is soft, nondistended. no Epigastric tenderness. No guarding or rebound. No organomegaly noted, obese musculoskeletal: Spontaneously moving all extremities. no edema, no calf tenderness Skin: warm, dry, intact. Neuro: Alert and oriented x4. No focal deficit Psych: Patient's affect is normal - Assessment and Plan (1) NSTEMI (non-ST elevated myocardial infarction) Current Visit: Yes Status: Acute Assessment and Plan: Patient with exertional chest pain, history of CAD, and EKG reveals ST depressions in lateral leads. Initial troponin < 0.03, 0.31, 1.17, 1.22 Patient was started on heparin drip on admission Cardiology on board NPO after midnight, anticipate [facility] tomorrow per cardiology. Lipid panel in the morning A1c in the morning Continue with statin, aspirin, beta john Echocardiogram (2) Atrial fibrillation Current Visit: Yes Status: Acute Assessment and Plan: Patient with history of atrial fibrillation Patient had AYAAN cardioversion in May 2015. Continue Cardizem drip and BB holding Sotalol as per cardiology recommendations on heparin drip Cardiology following. (3) CAD (coronary artery disease) Current Visit: Yes Status: Chronic Assessment and Plan: TTE 06/08/2015: EF 60-65%. No evidence of pulmonary hypertension. No significant valvular dysfunction. Pharmacological nuclear stress test 06/16/2016: Negative for ischemia or prior infarct. Gated EF 66%. Continue aspirin, BB,statins rest of the management as above (4) HLD (hyperlipidemia) Current Visit: Yes Status: Chronic Assessment and Plan: Continue statin. lipid panel AM (5) HTN (hypertension) Current Visit: Yes Status: Chronic Assessment and Plan: Continue home medications if not contraindicated. (6) DVT prophylaxis Current Visit: Yes Status: Acute Assessment and Plan: Heparin drip - Time Spent with Patient Total time spent is greater than 50% in coordination of care (as documented) at patient's floor/unit and/or counseling patient: Internal Medicine: Result - Labs CBC & Chem 7: 01/17/19 02:29 01/17/19 02:29 Labs: Short CBC 01/17/19 Range/Units 02:29 WBC 10.8 (4.3-11.1) K/mcL Hgb 14.1 (12.9-16.9) g/dL Hct 41.2 (37.5-50.1) % Plt Count 164 (140-400) K/mcL BMP 01/17/19 02:29 Sodium 142 Potassium 3.1 L Chloride 104 Carbon Dioxide 26 BUN 16 Creatinine 0.72 Glucose 133 H Calcium 9.9 Cardiac Enzymes 01/16/19 01/17/19 Range/Units 19:16 02:29 Troponin I 1.17 H* 1.22 H* (< 0.04) ng/mL Liver Function 01/17/19 Range/Units 02:29 Total Bilirubin 0.8 (0.3-1.0) mg/dL AST 22 (13-39) Units/L ALT 29 (7-52) Units/L Alkaline Phosphatase 55 (34-104) Units/L Albumin 4.5 (3.5-5.7) g/dL - ABG Interpretation ABG results: PT/INR, D-dimer PT 11.9 Seconds (9.4-12.1) 01/16/19 07:50 < 215 ng/mLFEU (0-500) 01/16/19 07:50 - Impressions Impressions Chest X-Ray 01/16/19 07:09 IMPRESSION: No acute cardiopulmonary disease. D/ / 01/16/2019 08:42:28 Geo Chavarria MD / syl Interpreting Provider: Geo Chavarria MD Consult Discharge Plan - Plan Referrals: Ariel Aden DO [Primary Care Provider] - (2) Atrial fibrillation Qualifiers: Atrial fibrillation type: paroxysmal Qualified Code(s): I48.0 - Paroxysmal atrial fibrillation (3) CAD (coronary artery disease) Qualifiers: Coronary Disease-Associated Artery/Lesion type: [place] artery [place] vs. tr ansplanted heart: [place] heart Associated angina: without angina Qualified Code(s): I25.10 - Atherosclerotic heart disease of [place] coronary artery without angina pectoris (4) HLD (hyperlipidemia) Qualifiers: Hyperlipidemia type: unspecified Qualified Code(s): E78.5 - Hyperlipidemia, unspecified (5) HTN (hypertension) Qualifiers: Hypertension type: essential hypertension Qualified Code(s): I10 - Essential (primary) hypertension
[2019-01-17] MEDS ORDERED: *HR* Ticagrelor 90 MG TABLET ONE (15:25)
--- NOTE | 2019-01-17 15:48 | Invasive Diagnostic Lab Proc ---
Name: Jorge A Hinojosa Date of Study: 01/17/2019 Date: 1950 Ht: 72.8in Medical Record#: [id number] Age: 68 Wt: 209.44lb Gender: Male BSA: 2.19 Order #: [id number] BMI: 27.79 Physicians Procedure Physician: Savannah Willis MD, [facility] Referring MD: Referring MD: Staff Name Position [facility] Home Advisor 01:36 PM Niko Hunt RN Monitor 01:36 PM ShahbazNika RT (R) Scrub 01:36 PM Savannah Crane RT (R) Scrub 01:37 PM Indications Indication Non-Stemi Procedures Performed Procedure L HRT ARTERY/VENTRICLE ANGIO PRQ CARD MUSA STENT W/ANGIO 1 VSL PRQ CARD MUSA STENT W/ANGIO 1 VSL PRQ CARD STENT W/ANGIO ADDL PRQ CARD STENT W/ANGIO ADDL Pre-Procedure Checklist Informed consent is complete signed and on chart. H&P is on chart. ID band is on and ID verified with patient. Patient NPO for procedure The procedure was described for the patient and questions were answered. ECG is on chart. Plan of Care Patient will tolerate the procedure without complications. Adequate level of comfort will be maintained. Hemodynamics will remain stable Patient will recover from procedure without complications. Respiratory function will be maintained. Cardiac rhythm will remain stable. Patient temperature will be maintained. Patient and/or family have verbalized understanding of the procedure. Patient Education Chief Complaint/Reason for Test: Cardiac Cath Developmental Category: Adult (18-64 years) Developmentally Appropriate for Age: Yes Learning Barriers: None Education Needs: Procedure Education Method: Verbal Information Taught: Cardiac Cath Educational Evaluation: Able to repeat information Intravenous Access Time IV Size Location DC'd Fluid/Drip Rate Units RN 18g 1 1/4" Patent On Arrival Lt Antecubital 0.9NaCl 18g 1 1/4" Patent On Arrival Rt Antecubital Allergies NKDA No Known Allergies Vital Signs Time BP (mmHg) HR (bpm) O2 Sat. RR (bpm) LOC 01:42 PM / % 5 = Fully awake and oriented or at pre-proc level 01:42 PM / % 4 = Oriented but drowsy 01:57 PM / % 4 = Oriented but drowsy 02:13 PM / % 4 = Oriented but drowsy 02:28 PM / % 5 = Fully awake and oriented or at pre-proc level 02:43 PM / % 4 = Oriented but drowsy 02:58 PM / % 4 = Oriented but drowsy 02:06 PM 110 / 83 122 95 % 02:11 PM 114 / 77 88 96 % 17 02:17 PM 95 / 75 113 96 % 24 02:21 PM 100 / 76 84 97 % 16 02:26 PM 106 / 87 96 96 % 25 02:33 PM 130 / 87 75 95 % 19 02:37 PM 146 / 89 120 96 % 14 02:42 PM 119 / 81 90 97 % 16 02:47 PM 124 / 69 131 86 % 40 02:52 PM 130 / 90 74 96 % 14 01:41 PM 128 / 92 125 % 12 01:46 PM 122 / 83 100 97 % 6 01:51 PM 113 / 87 109 92 % 01:56 PM 124 / 77 124 97 % 29 02:01 PM 103 / 83 138 97 % 16 02:57 PM 107 / 79 115 93 % 14 03:02 PM 110 / 73 100 97 % 16 03:07 PM 120 / 81 107 93 % 19 03:12 PM 127 / 73 109 94 % 21 Procedural Medications Time Medication Dose Units Method Given By 01:42 PM Oxygen 2 L/min nasal cannula Eliz Cosme RN 01:43 PM Versed 2 mg Intravenous Eliz Cosme RN 01:43 PM Fentanyl 50 mcg Intravenous Eliz Cosme RN 01:57 PM Lidocaine 2% 19 ml Subcutaneous Savannah Willis MD, FACC 02:15 PM Angiomax 0.75mg/kg bolus: 14 ml Intravenous Eliz Cosme RN 02:15 PM Angiomax 1.75mg/kg/hr: 33 ml Intravenous Eliz Cosme RN 02:51 PM Nitroglycerin 200 mcg Intracoronary Savannah Willis MD, FACC 02:59 PM 90mg Adenosine in 90 ml 0.9 NS 798 ml/hr Intravenous Eliz Cosme RN 03:10 PM Nitroglycerin 200 mcg Intracoronary Savannah Willis MD, FACC 03:14 PM Brilinta 180 mg Orally Eliz Cosme RN Ana Score Preprocedure Postprocedure Activity 2- Moves 4 extremities sustained head lift Activity 2- Moves 4 extremities sustained head lift Circulation 2- SBP +/= 20 points of pre-anesthetic level Circulation 2- SBP +/= 20 points of pre-anesthetic level Consciousness 2- Awake and alert oriented x 3 Consciousness 2- Awake and alert oriented x 3 O2 Saturation 2- Able to maintain O2 satruation of 92% on room air O2 Saturation 2- Able to maintain O2 satruation of 92% on room air Respiratory 2- Able to deep breathe and cough well Respiratory 2- Able to deep breathe and cough well Total Score 10 Total Score 10 Contrast Agent: Isovue Diagnostic Contrast: 284 ml Total Contrast: 284 ml Fluoro Dose: 91 mGy Procedure Log Time Note Enter By 01:35 PM 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 cedwards 01:35 PM Diltiazem drip stopped when patient entered room. cedwards 01:36 PM Eliz Cosme RN Position: Home Advisor Time in: 13:36 cedwards 01:36 PM Niko Hunt RN Position: Monitor Time in: 13:36 cedwards 01:36 PM Nika Hartmann RT (R) Position: Scrub Time in: 13:36 cedwards 01:37 PM Savannah Crane RT (R) Position: Scrub Time in: 13:37 cedwards 01:40 PM Recorded ECG: QP=815 Condition=Condition 1 01:40 PM Recorded ECG: HQ=599 Condition=Condition 1 01:41 PM Vitals capture started with the following parameters, Patient=Adult, Interval=5 min, Initial Pgfhikex=851 mmHg, Deflation Rate=5 mmHg, Cuff placed on Left Arm : PM Physician arrived 13:41 cedwards : PM Bob and beth completed ced: PM Sign in performed according to hospital policy. Informed consent was obtained. cedwards :41 PM Procedure start 13:41 cedwards : PM PQ=665 bpm, LXRS=537/92 mmhg, Resp=12 B/min, Comment=A FIB :42 PM Time: 13:42 Oxygen on at 2 L/min per nasal cannula by Eliz Cosme RN cedwards :42 PM Time: 13:42 Patient comfortable and pain free: Yes cedwards :42 PM Time: 13:42LOC: 5 = Fully awake and oriented or at pre-proc level cedwards :43 PM Case Start 01:43 PM CathStat 01:43 PM Time: 13:43 Versed 2 mg Intravenous Given by Eliz Cosme RN cedwards 01:44 PM Time: 13:43 Fentanyl 50 mcg Intravenous Given by Eliz Cosme RN cedwards 01:46 PM CV=112 bpm, OGWT=476/83 mmhg, SpO2=97.0 %, Resp=6 B/min, Comment=A FIB 01:51 PM Diltiazem drip restarted at 15mg/hr, per verbal order Dr. Willis, mixed in golf course laborer 125mg Diltiazem in 100mL Normal Saline for 15 mg/hr cedwards 01:51 PM Recorded ECG: HR=784 Condition=Condition 1 01:51 PM GR=576 bpm, YGKC=804/87 mmhg, SpO2=92.0 %, EtCO2=35 mmHg, Comment=A FIB :56 PM Clinical Presentation: Unstable angina cedwards 01:56 PM Time out was performed according to hospital policy. Conscious sedation and anesthesia was achieved (see medication log with in this report above) cedwards 01:56 PM MT=236 bpm, TYHT=137/77 mmhg, SpO2=97.0 %, Resp=29 B/min, EtCO2=33 mmHg, Comment=A FIB 01:57 PM Time: 13:57 19 ml Lidocaine 2% to right groin Subcutaneous Given by Savannah Willis MD, [facility] cedwards :57 PM Time: 13:42LOC: 4 = Oriented but drowsy cedwards :58 PM Time: 13:42 Patient comfortable and pain free: Yes cedwards :58 PM Access obtained by percutaneous puncture. 5Fr 10cm Terumo [place] sheath placed in right Femoral artery. [id number] cedwards 01:58 PM 0.035 145cm Navilyst 3mmJ wire [id number] cedwards 01:59 PM 5Fr FL 4 catheter inserted over the wire [facility] cedwards 01:59 PM LCA angiography performed in multiple views. cedwards 02:00 PM Recorded Pressure: Ao, FL=635, Condition=Condition 1 (Aorta) Ao 91/75/83 02:01 PM Catheter removed cedwards 02:01 PM 5Fr FR 4 catheter inserted over the wire [facility] cedwards 02:01 PM IO=437 bpm, UMXA=860/83 mmhg, SpO2=97.0 %, Resp=16 B/min, Comment=A FIB 02:03 PM Recorded Pressure: Ao, WU=074, Condition=Condition 1 (Aorta) Ao 90/74/82 02:03 PM RCA angiography performed in multiple views. cedwards 02:05 PM Catheter removed cedwards 02:06 PM 5Fr Pigtail catheter inserted over the wire [facility] cedwards 02:06 PM Catheter crossed the aortic valve and was selectively placed in the left ventricle. Pressures recorded on pullback for left heart catheterization. cedwards 02:06 PM Bolus angiogram of left Ventricle complete: 8 ml/sec for a total of 24 mls cedwards 02:06 PM Pressure channel 1 zeroed. 02:06 PM HP=527 bpm, STWM=940/83 mmhg, SpO2=95.0 % 02:07 PM Recorded Pressure: LV, PV=734, Condition=Condition 1 (Left Ventricle) LV 106/-1/6 02:07 PM Recorded Pressure: LV, Ao, HR=93, Condition=Condition 1 (Left Ventricle) LV 118/56/97, (Aorta) Ao 93/56/79 02:07 PM Catheter removed cedwards 02:11 PM HR=88 bpm, VYLP=025/77 mmhg, SpO2=96.0 %, Resp=17 B/min, EtCO2=30 mmHg, Comment=A FIB 02:13 PM Time: 13:58 Patient comfortable and pain free: Yes cedwards 02:13 PM Time: 13:57LOC: 4 = Oriented but drowsy cedwards 02:14 PM Coronary Dominance: right cedwards 02:14 PM Sheath exchanged for a 6 Fr 11 cm Cordis Cindy sheath [id number] cedwards 02:15 PM Time: 14:15 Angiomax 0.75mg/kg bolus: 14 ml Intravenous Given by Eliz Cosme RN Marie pump cedwards 02:15 PM Time: 14:15 Angiomax 1.75mg/kg/hr: 33 ml Intravenous Given by Eliz Cosme RN Marie pump cedwards 02:16 PM 6Fr XB LAD 3.5 Cordis guide catheter was used to cannulate the PCI vessel successfully. reused? No cedwards 02:16 PM Inflation device was opened. cedwards 02:16 PM .014 Prowater 180cm guide wire across target lesion- successful. reused? No cedwards 02:17 PM PZ=963 bpm, NIBP=95/75 mmhg, SpO2=96.0 %, Resp=24 B/min, EtCO2=21 mmHg, Comment=A FIB 02:18 PM Lesion found in 1st Marginal. Pre Stenosis: 90 Pre BOBO Flow: 3: Complete and Brisk Flow/Perfusion cedwards 02:18 PM Lesion found in 2nd Marginal. Pre Stenosis: 95 Pre BOBO Flow: 3: Complete and Brisk Flow/Perfusion cedwards 02:21 PM HR=84 bpm, LXEK=142/76 mmhg, SpO2=97.0 %, Resp=16 B/min, EtCO2=31 mmHg, Comment=A FIB 02:22 PM 2.5 mm x 12 mm Emerge Monorail balloon across target lesion- successful. reused? No cedwards 02:23 PM Recorded Pressure: Ao, HR=98, Condition=Condition 1 (Aorta) Ao 94/69/81 02:26 PM Balloon inflated @ 10 antwan for 20 seconds cedwards 02:26 PM HR=96 bpm, AQVV=932/87 mmhg, SpO2=96.0 %, Resp=25 B/min, EtCO2=32 mmHg, Comment=A FIB 02:27 PM Balloon catheter removed intact. cedwards 02:27 PM Recorded Pressure: Ao, OY=469, Condition=Condition 1 (Aorta) Ao 100/75/87 02:28 PM Time: 14:13LOC: 4 = Oriented but drowsy cedwards 02:28 PM Time: 14:13 Patient comfortable and pain free: Yes cedwards 02:29 PM 3.0mm x 16mm Synergy drug-eluting stent across target lesion- successful Lot #[id number] cedwards 02:29 PM Stent deployed @ 11 antwan for 30 seconds cedwards 02:29 PM Recorded Pressure: Ao, NI=058, Condition=Condition 1 (Aorta) Ao 101/83/92 02:30 PM Recorded Pressure: Ao, HR=99, Condition=Condition 1 (Aorta) Ao 106/80/93 02:30 PM Stent balloon reinflated @ 14 antwan for 22 seconds cedwards 02:31 PM Stent balloon reinflated @ 16 antwan for 11 seconds cedwards 02:31 PM Recorded Pressure: Ao, UJ=560, Condition=Condition 1 (Aorta) Ao 104/77/88 02:32 PM Stent delivery system removed intact. cedwards 02:33 PM HR=75 bpm, BOHU=805/87 mmhg, SpO2=95.0 %, Resp=19 B/min, EtCO2=32 mmHg, Comment=A FIB 02:33 PM 3.5 mm x 8mm NC Emerge balloon across target lesion- successful. reused? No cedwards 02:34 PM Balloon inflated @ 12 antwan for 15 seconds cedwards 02:35 PM Balloon inflated @ 14 antwan for 17 seconds cedwards 02:35 PM Balloon catheter removed intact. cedwards 02:36 PM Wire repositioned to 2nd Marginal cedwards 02:37 PM RH=210 bpm, PKPV=004/89 mmhg, SpO2=96.0 %, Resp=14 B/min, EtCO2=30 mmHg, Comment=A FIB 02:37 PM Recorded Pressure: Ao, HP=208, Condition=Condition 1 (Aorta) Ao 106/79/92 02:38 PM 2.5 mm x 12 mm Emerge Monorail balloon across target lesion- successful. reused? Yes cedwards 02:38 PM Balloon inflated @ 8 antwan for 20 seconds cedwards 02:40 PM 3.0mm x 16mm Synergy drug-eluting stent across target lesion- successful Lot #[id number] cedwards 02:42 PM HR=90 bpm, CUAK=020/81 mmhg, SpO2=97.0 %, Resp=16 B/min, EtCO2=28 mmHg, Comment=A FIB 02:42 PM Stent deployed @ 12 antwan for 30 seconds cedwards 02:43 PM Stent balloon reinflated @ 16 antwan for 10 seconds cedwards 02:43 PM Time: 14:28 Patient comfortable and pain free: Yes cedwards 02:43 PM Time: 14:28LOC: 5 = Fully awake and oriented or at pre-proc level cedwards 02:44 PM Recorded Pressure: Ao, LT=035, Condition=Condition 1 (Aorta) Ao 103/75/89 02:47 PM FR=873 bpm, ILOU=801/69 mmhg, SpO2=86.0 %, Resp=40 B/min, EtCO2=22 mmHg, Comment=A FIB 02:47 PM Lesion found in Proximal Circumflex. Pre Stenosis: 70 Pre BOBO Flow: 3: Complete and Brisk Flow/Perfusion cedwards 02:48 PM 4.0mm x 12mm Synergy drug-eluting stent across target lesion- successful Lot #[id number] cedwards 02:49 PM Stent deployed @ 11 antwan for 30 seconds cedwards 02:50 PM Stent balloon reinflated @ 12 antwan for 10 seconds cedwards 02:51 PM Time: 14:51 Nitroglycerin 200 mcg Intracoronary Given by Savannah Willis MD, [facility] cedwards 02:52 PM HR=74 bpm, SYQM=247/90 mmhg, SpO2=96.0 %, Resp=14 B/min, EtCO2=32 mmHg, Comment=A FIB 02:52 PM Stent delivery system removed intact. cedwards 02:52 PM Recorded Pressure: Ao, HP=402, Condition=Condition 1 (Aorta) Ao 91/69/80 02:54 PM Recorded Pressure: Ao, WU=349, Condition=Condition 1 (Aorta) Ao 103/75/89 02:55 PM New bag of angiomax started. cedwards 02:57 PM YD=917 bpm, AEWT=380/79 mmhg, SpO2=93 %, Resp=14 B/min 02:57 PM Pressure channel 4 zeroed. 02:57 PM Lesion found in Proximal LAD. Pre Stenosis: 70 Pre BOBO Flow: 3: Complete and Brisk Flow/Perfusion cedwards 02:58 PM Asist FFR Catheter advanced to target lesion. cedwards 02:58 PM Time: 14:43LOC: 4 = Oriented but drowsy cedwards 02:58 PM Time: 14:43 Patient comfortable and pain free: Yes cedwards 02:58 PM Pressure channel 4 equalized to channel 1. 02:59 PM Pressure channel 4 equalized to channel 1. 03:00 PM Time: 14:59 90mg Adenosine in 90 ml 0.9 NS 798 ml/hr Intravenous Given by Eliz Cosme RN Marie pump cedwards 03:01 PM FFR: Value=0.79, Condition=Condition 1, Device=VOLCANO PRIME WIRE 03:01 PM Recorded Pressure: Ao, PV1, FFR=0.79, HR=68, Condition=Condition 1 (Aorta) Ao 91/60/78, (Portal Vein) PV1 90/61/60 03:01 PM FFR Measurement: 0.79, Proximal LAD cedwards 03:02 PM NS=684 bpm, JJNG=264/73 mmhg, SpO2=97.0 %, Resp=16 B/min 03:02 PM Flow Wire/Catheter removed intact cedwards 03:05 PM 2.75mm x 16mm Synergy drug-eluting stent across target lesion- successful Lot #[id number] cedwards 03:06 PM Stent deployed @ 12 antwan for 30 seconds cedwards 03:07 PM SK=018 bpm, EOEH=526/81 mmhg, SpO2=93.0 %, Resp=19 B/min, EtCO2=28 mmHg, Comment=A FIB 03:07 PM Recorded Pressure: Ao, HR=86, Condition=Condition 1 (Aorta) Ao 102/77/91 03:07 PM Stent balloon reinflated @ 14 antwan for 15 seconds cedwards 03:09 PM Stent balloon reinflated @ 18 antwan for 10 seconds cedwards 03:10 PM Time: 15:10 Nitroglycerin 200 mcg Intracoronary Given by Savannah Willis MD, FACC cedwards 03:10 PM Guide wire removed intact. cedwards 03:12 PM UL=443 bpm, XGDA=418/73 mmhg, SpO2=94.0 %, Resp=21 B/min, Comment=A FIB 03:14 PM Time: 14:58 Patient comfortable and pain free: Yes cedwards 03:14 PM Time: 14:58LOC: 4 = Oriented but drowsy cedwards 03:14 PM Time: 15:14 Brilinta 180 mg Orally Given by Eliz Cosme RN cedwards 03:21 PM Procedure completed at 15:21 01/17/2019 cedwards 03:21 PM Did you address BOBO flow and Dominance? YesCoronary Dominance: right cedwards 03:22 PM Sign out completed: Radiation Dose 858.05 mGy, 90.7 Gy/cm2 Fluoro Time: 16 Isovue 370 - 200ml contrast 284 ml given by Savannah Willis MD, FACC. Complications: None. 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 Sedation minutes 100. Cardiac Rehab Consult needed: Yes. Confirmed administered medications: Yes cedwards 03:22 PM Isovue 370 - 200ml,2 Bottle(s) used. cedwards 03:22 PM Sheath left in place to be pulled on floor/holding areaV+Pad cedwards 03:22 PM Estimated Blood Loss: minimal cedwards 03:22 PM Post ECG Atrial Fibrillation cedwards 03:22 PM Post Blood Pressure 127/73 cedwards 03:23 PM Information taught Cardiac Cath, PCI, and IVUS/Flowire cedwards 03:23 PM Education needs Procedure, Plan of Care, and Disease Process cedwards 03:23 PM Learning barriers :None cedwards 03:23 PM Education Methods Verbal cedwards 03:23 PM Education evaluation Able to repeat information cedwards 03:23 PM Site status No bleeding/hematoma - Rt Groin as reported by Sites, Nika RT (R) at 15:23 cedwards 03:23 PM Opsite applied cedwards 03:23 PM Plavix, Effient or Brilinta given Yes cedwards 03:23 PM Family placed in consult room. cedwards 03:23 PM Complications: None cedwards 03:31 PM Report given to Beatriz EDOUARD Pt taken to 2N Room #1. 15:31 cedwards 03:36 PM Lesion found in Proximal RCA. Pre Stenosis: 30 Pre BOBO Flow: cedwards 03:36 PM Lesion found in Mid RCA. Pre Stenosis: 40 Pre BOBO Flow: cedwards 03:36 PM Lesion found in Distal RCA. Pre Stenosis: 30 Pre BOBO Flow: cedwards Complications Complication None None Hemodynamics Pressures Site Systolic/A Wave Diastolic/V Wave Mean AO 91 75 83 AO 90 74 82 LV 106 -1 6 LV 118 56 97 AO 93 56 79 AO 94 69 81 AO 100 75 87 AO 101 83 92 AO 106 80 93 AO 104 77 88 AO 106 79 92 AO 103 75 89 AO 91 69 80 AO 103 75 89 AO 91 60 78 PV1 90 61 60 AO 102 77 91 Post Procedure Information Blood Pressure: 127/73 mmHg Rhythm: Atrial Fibrillation Post procedural instructions were given Site Checks Time Location Status Staff Sheath In? Note 03:23 PM Rt Groin No bleeding/hematoma Sites, Nika RT (R) Yes Pulses Time Site Pre-Procedure Post-Procedure Note Bilateral DP & PT 2+ 2+ Bilateral radial 2+ 2+ Updated by Niko Hunt RN on 01/17/2019 3:38:45 PM electronically signed on 01/17/2019 3:40:49 PM with status of Final
--- NOTE | 2019-01-17 15:50 | Event Note ---
Date of Encounter: 01/17/19 Time of Encounter: 15:47 - Cardiology Event Note Discussed with , regarding a.fib, will increase sotalol to 160mg BID. First dose tonight. WIll monitor ECGs daily. Continuous telemetry. Discussed with Dr.Jennifer Willis, ok to resume xarelto tonight at 1999. Will stop heparin drip. Will continue to monitor.
[2019-01-17] MEDS ORDERED: *HR* Atropine Sulfate 1 MG/10 ML SYRINGE ONE (20:20)
[2019-01-17] MEDS: *HR* Rivaroxaban 10 MG TABLET PO SCH (22:21)
[2019-01-18 07:52] LABS: Hemoglobin 14.6 g/dL (12.9-16.9); Mean Corpuscular HGB Conc 34.8 g/dL (31.6-35.5); Mean Corpuscular Hemoglobin 31.4 pg (28.0-33.3); Mean Corpuscular Volume 90.3 fL (83.0-100.0); Mean Platelet Volume 10.5 fL (9.4-12.4); Platelet Count 170 K/mcL (140-400); Red Blood Count 4.65 M/mcL (4.19-5.50); Red Cell Distribution Width 12.2 % (11.5-14.5)
[2019-01-18 07:53] LABS: Estimated Average Glucose 114 mg/dl; Hemoglobin A1C 5.6 %
[2019-01-18 08:05] LABS: BUN/Creatinine Ratio 20 (6-26); Blood Urea Nitrogen 17 mg/dL (8-23); Calcium 10.2 mg/dL (8.6-10.3); Carbon Dioxide 25 mEq/L (23-29); Chloride 106 mEq/L (98-107); Chol/HDL Ratio 4.4 (0-4.9); Cholesterol 127 mg/dL (< 200); Glucose 138 mg/dL (70-105); HDL Cholesterol 29 mg/dL (40-59); LDL Cholesterol,Calculated 50 mg/dL (0-99); Osmolality,Calculated 302 (280-300); Potassium 3.3 mEq/L (3.5-5.1); Sodium 144 mEq/L (136-145); Triglycerides 242 mg/dL (< 150); eGFR For Non-African Americans > 60 (> 60)
[2019-01-18] MEDS: Insulin LISPRO 300 UNITS/3 ML VIAL SQ SCH ×4 (08:51→21:05)
[2019-01-18] MEDS: Lisinopril-HCTZ 20-12.5mg TABLET PO SCH (08:52)
[2019-01-18] MEDS: Aspirin Enteric Coated 81 MG Tablet PO SCH (08:52)
--- NOTE | 2019-01-18 10:47 | Cardiology Progress Note ---
Date of Encounter: 01/18/19 Time of Encounter: 10:42 Assessment and Plan (1) NSTEMI (non-ST elevated myocardial infarction) Current Visit: Yes Status: Acute Peak troponin 1.22. Underwent LHC yesterday--Double vessel CAD. EF 60%. Patient had successful Drug- Eluting Stent placement in the proximal LAD, Proximal Circ, OM1, and OM2. Denies chest pain overnight. Right femoral access site healing well. No bleeding, hematoma or ecchymosis noted. DAPT (ASA and Plavix). Pt is on Xarelto for PAF. Triple therapy x 1 month, then will plan to stop ASA. Continue BB, Statin, ACEi. TTE pending. Continue to follow d/t pt needing monitored until he received 5 increased Sotalol doses detailed below. (2) Atrial fibrillation with RVR Current Visit: Yes Status: Acute Known hx of PAF. DCCV in 2014. Home med included Sotalol 120mg BID. Anticoagulated on Xarelto. Presented in A-Fib RVR rate 140s. Increased Sotalol to 160mg BID--s/p 2 doses. Converted back to SR evening of 01/17. Discussed with Dr. Rashid. Needs monitored x 5 doses with daily ECGs to monitor QTc. ECG not obtained this AM. Ordered. (3) CAD (coronary artery disease) Current Visit: Yes Status: Chronic As above, s/p PCI. ASA, Plavix, Statin, BB, ACEi. Qualifiers: Coronary Disease-Associated Artery/Lesion type: [place] artery [place] vs. transplanted heart: [place] heart Associated angina: without angina Qualified Code(s): I25.10 - Atherosclerotic heart disease of [place] coronary artery without angina pectoris Discussion w patient/family: The assessment and plan as outlined above was discussed with the patient and/or family members who expressed understanding and agreement. All questions were answered. Thank you for involving us in the care of your patient. Please call with any questions. I will discuss all the above with Dr. Rashid and make changes as needed. Subjective Principal diagnosis: NSTEMI, CAD, A-Fib Interval history: No acute complaints this AM. Objective Vital Signs, Last 4 Hours Temp Pulse Resp BP Pulse Ox 01/18/19 07:03 98.5 F 82 18 145/92 97 Vital Signs Temp Pulse Pulse Resp BP Pulse Ox 01/18/19 07:03 98.5 F 82 18 145/92 97 01/18/19 03:42 98.4 F 73 17 130/84 97 01/18/19 00:39 73 01/18/19 00:10 98.8 F 69 16 113/81 96 01/18/19 00:00 69 16 113/81 94 01/17/19 23:00 68 16 129/83 97 01/17/19 22:00 66 16 120/89 96 01/17/19 21:45 63 16 124/82 96 01/17/19 21:30 64 16 129/85 95 01/17/19 21:15 98.4 F 63 18 147/90 95 01/17/19 21:00 64 105/64 96 01/17/19 20:59 65 65 18 105/64 95 01/17/19 20:55 66 66 18 125/90 96 01/17/19 20:50 67 67 18 126/92 96 01/17/19 20:45 67 67 18 98/72 95 01/17/19 20:40 67 67 18 146/91 96 01/17/19 20:35 68 68 18 137/97 96 01/17/19 20:25 108 100 18 142/101 95 01/17/19 19:19 98.0 F 105 17 134/102 96 01/17/19 19:00 116 150/105 01/17/19 18:30 116 156/114 97 01/17/19 18:00 125 145/108 01/17/19 17:30 113 164/114 01/17/19 16:45 96 137/100 01/17/19 16:30 107 131/110 96 01/17/19 16:15 91 18 128/102 96 01/17/19 16:01 98.4 F 128 20 121/83 94 01/17/19 11:14 98.2 F 86 14 121/80 97 Intake and Output 01/17/19 01/18/19 01/18/19 23:59 07:59 15:59 Intake Total 122 / 770.0 240 / 240 Balance 122 / 770.0 240 / 240 Intake: IV Fluids 122 / 770.0 Cardizem 125 MG In 0.9 % Sodium 122 / 215 Chloride 100 ML @ 15 MG/HR 15 mls/hr IVC CONT MIKAELA Rx#: [id number] Oral 240 / 240 Other: Meal Breakfast Percent of Meal Consumed 5% Blood Glucose* 136 158 General: Conversant, No Apparent Distress HEENT: Atraumatic, Normocephaly, Mucus Membranes Moist Neck: No JVD, Normal carotid pulses Cardiac: Reg Rate and Rhythm, Normal S1 and S2, No Murmur Lungs: Normal Breath Sounds, No Wheeze, Rales, Rhonchi Neuro: Alert and responsive, No focal deficits noted Abdomen: Soft, Non-Tender Skin: No rashes noted on visualized skin Musculoskeletal: No Chest Wall Tenderness Extremities: No Clubbing, No Cyanosis, No Edema, Normal Pulses Results 01/18/19 06:56 01/18/19 06:56 Lab Results 01/18/19 01/18/19 06:56 06:56 WBC 9.2 Hgb 14.6 Hct 42.0 Plt Count 170 Sodium 144 Potassium 3.3 L Chloride 106 Carbon Dioxide 25 BUN 17 Creatinine 0.86 Glucose 138 H Calcium 10.2 Troponin I 0.50 H* Short CBC 01/18/19 Range/Units 06:56 WBC 9.2 (4.3-11.1) K/mcL Hgb 14.6 (12.9-16.9) g/dL Hct 42.0 (37.5-50.1) % Plt Count 170 (140-400) K/mcL BMP 01/18/19 Range/Units 06:56 Sodium 144 (136-145) mEq/L Potassium 3.3 L (3.5-5.1) mEq/L Chloride 106 (98-107) mEq/L Carbon Dioxide 25 (23-29) mEq/L BUN 17 (8-23) mg/dL Creatinine 0.86 (0.70-1.30) mg/dL Glucose 138 H (70-105) mg/dL Calcium 10.2 (8.6-10.3) mg/dL Cardiac Enzymes 01/18/19 Range/Units 06:56 Troponin I 0.50 H* (< 0.04) ng/mL Active Medications Acetaminophen (Tylenol) 650 mg PO Q6HR PRN PRN Reason: Mild Pain/Fever Stop: 07/18/19 11:22 Aspirin (Aspirin Ec) 81 mg PO DAILY [facility] Stop: 07/19/19 09:01 Last Admin: 01/18/19 08:52 Dose: 81 mg Documented by: Atorvastatin Calcium (Lipitor) 80 mg PO HS [facility] Stop: 07/19/19 21:01 Last Admin: 01/17/19 19:31 Dose: 80 mg Documented by: Clopidogrel Bisulfate (Plavix) 75 mg PO DAILY [facility] Stop: 07/20/19 09:01 Last Admin: 01/18/19 08:52 Dose: 75 mg Documented by: Dextrose/Water (Dextrose 50% (Syg)) 25 ml IVP AD PRN PRN Reason: Hypoglycemia Stop: 07/18/19 11:33 Docusate Sodium (Colace) 100 mg PO BID PRN PRN Reason: Constipation Stop: 07/18/19 21:01 Glucagon (Glucagen) 1 mg IM ONCE PRN PRN Reason: Hypoglycemia Stop: 07/18/19 11:33 Glucose (Gluctose) 15 gm PO ONCE PRN PRN Reason: Hypoglycemia Stop: 07/18/19 11:33 Glucose (Gluctose) 30 gm PO ONCE PRN PRN Reason: Hypoglycemia Stop: 07/18/19 11:33 Lisinopril/HCTZ (Prinzide 20-12.5) 1 each PO DAILY [facility] Stop: 07/19/19 09:01 Last Admin: 01/18/19 08:52 Dose: 1 each Documented by: Dextrose (Dextrose 5%) 1,000 mls @ 100 mls/hr IVC .Q10H PRN PRN Reason: HYPOGLYCEMIA Stop: 07/18/19 11:33 Insulin Human Lispro (Humalog) 0 units SQ HS [facility]; Protocol Stop: 07/18/19 21:01 Last Admin: 01/17/19 21:33 Dose: Not Given Documented by: Insulin Human Lispro (Humalog) 0 units SQ TIDAC [facility]; Protocol Stop: 07/18/19 16:31 Last Admin: 01/18/19 08:51 Dose: Not Given Documented by: Metoprolol Tartrate (Lopressor) 25 mg PO BID [facility] Stop: 07/19/19 09:01 Last Admin: 01/18/19 08:52 Dose: 25 mg Documented by: Naloxone HCl (Narcan) 0.4 mg IVP Q2MPRN PRN PRN Reason: SEE COMMENTS Stop: 07/18/19 11:22 Ondansetron HCl (Zofran) 4 mg IVP Q6HR PRN PRN Reason: Nausea And Vomiting Stop: 07/18/19 11:22 Rivaroxaban (Xarelto) 20 mg PO 1700 [facility] Stop: 07/19/19 20:01 Last Admin: 01/17/19 22:21 Dose: 20 mg Documented by: Sotalol HCl (Betapace) 160 mg PO Q12HR [facility] Stop: 07/19/19 18:01 Last Admin: 01/18/19 06:35 Dose: 160 mg Documented by: - Imaging and Cardiology Echo: report reviewed Cardiac cath: report reviewed - EKG Interpretation EKG results cardiology: other (12 hr tele AVG HR 76, now SR) Consult Discharge Plan - Plan Referrals: Ariel Aden DO [Primary Care Provider] - 01/26/19 1:45 pm Gia Jimenez, SUPERVISOR HEADING [Advanced Practice Nurse] - (office to call patient at home with follow up appointment)
--- NOTE | 2019-01-18 11:48 | Internal Med Progress Note ---
Hospitalist Progress Note - Encounter Date of Encounter: 01/18/19 Time of Encounter: 09:15 - Subjective Interval History: Underwent left heart catheterization with PCI 4 yesterday. Currently denies any chest pain or palpitation. Converted to normal sinus rhythm overnight. - Exam Vitals: Temp Pulse Resp BP Pulse Ox 99.1 F 78 18 132/98 97 01/18/19 11:03 01/18/19 11:03 01/18/19 11:03 01/18/19 11:03 01/18/19 11:03 Exam: General: Patient is alert, oriented, no acute distress Respiratory: Good respiratory effort. Bilateral breath sounds are clear without wheezing, crackles, or rhonchi. Cardiovascular: regular rhythm and rate. Abdomen: soft, non-tender MSK: R groin dressing c/d/i, distal pulses intact Neuro: Alert and oriented x4. No focal deficit - Assessment and Plan (1) NSTEMI (non-ST elevated myocardial infarction) Current Visit: Yes Status: Acute Assessment and Plan: Patient with exertional chest pain, history of CAD, and EKG reveals ST depressions in lateral leads. troponin peaked at 1.22 started on heparin drip on admission and underwent LHC yesterday. MUSA to pLAD, pLCX, OM1, and OM2 DAPT, bb, statin, ROSEMARIE-i Echocardiogram pending appreciate cardiology input (2) Atrial fibrillation Current Visit: Yes Status: Acute Assessment and Plan: Patient with history of atrial fibrillation and AYAAN cardioversion in May 2015. initially required cardizem gtt, now d/shahram appreciate cardiology input, sotalol increased to 160mg BID, continue bb monitor for 5 doses of increased amount of sotalol, QTc 459ms this morning continue daily EKG Xarelto resumed (3) CAD (coronary artery disease) Current Visit: Yes Status: Chronic Assessment and Plan: DAPT, bb, statin, ROSEMARIE-i plan to continue triple therapy for 1 month then d/c ASA threafter (4) HLD (hyperlipidemia) Current Visit: Yes Status: Chronic Assessment and Plan: Continue home meds (5) HTN (hypertension) Current Visit: Yes Status: Chronic Assessment and Plan: Continue home meds (6) Diabetes Current Visit: Yes Status: Chronic Assessment and Plan: On metformin at home, A1c 5.6 Low-dose sliding scale (7) DVT prophylaxis Current Visit: Yes Status: Acute Assessment and Plan: On Xarelto - Time Spent with Patient Total time spent is greater than 50% in coordination of care (as documented) at patient's floor/unit and/or counseling patient: 25 - 35 minutes Plan of Care Discussed with: patient (discused with RN and Cardiology) Internal Medicine: Result - Labs CBC & Chem 7: 01/18/19 06:56 01/18/19 06:56 Labs: Short CBC 01/18/19 Range/Units 06:56 WBC 9.2 (4.3-11.1) K/mcL Hgb 14.6 (12.9-16.9) g/dL Hct 42.0 (37.5-50.1) % Plt Count 170 (140-400) K/mcL BMP 01/18/19 06:56 Sodium 144 Potassium 3.3 L Chloride 106 Carbon Dioxide 25 BUN 17 Creatinine 0.86 Glucose 138 H Calcium 10.2 Cardiac Enzymes 01/18/19 Range/Units 06:56 Troponin I 0.50 H* (< 0.04) ng/mL - ABG Interpretation ABG results: PT/INR, D-dimer PT 11.9 Seconds (9.4-12.1) 01/16/19 07:50 < 215 ng/mLFEU (0-500) 01/16/19 07:50 Consult Discharge Plan - Plan Referrals: Ariel Aden DO [Primary Care Provider] - 01/26/19 1:45 pm Gia Jimenez, ACCOUNTING ADMINISTRATIVE ASSISTANT [Advanced Practice Nurse] - (office to call patient at home with follow up appointment) (2) Atrial fibrillation Qualifiers: Atrial fibrillation type: paroxysmal Qualified Code(s): I48.0 - Paroxysmal atrial fibrillation (3) CAD (coronary artery disease) Qualifiers: Coronary Disease-Associated Artery/Lesion type: [place] artery [place] vs. transplanted heart: [place] heart Associated angina: without angina Qualified Code(s): I25.10 - Atherosclerotic heart disease of [place] coronary artery without angina pectoris (4) HLD (hyperlipidemia) Qualifiers: Hyperlipidemia type: unspecified Qualified Code(s): E78.5 - Hyperlipidemia, unspecified (5) HTN (hypertension) Qualifiers: Hypertension type: essential hypertension Qualified Code(s): I10 - Essential (primary) hypertension (6) Diabetes Qualifiers: Diabetes mellitus type: type 2 Diabetes mellitus mcfp insulin use: without exterminator helper use Diabetes mellitus complication status: with unspecified complications Qualified Code(s): E11.8 - Type 2 diabetes mellitus with unspecified complications
--- NOTE | 2019-01-18 13:03 | Electrocardiograph Report ---
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
--- NOTE | 2019-01-18 13:31 | Electrocardiograph Report ---
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
[2019-01-18] MEDS: *HR* Rivaroxaban 10 MG TABLET PO SCH (18:41)
[2019-01-19 03:51] LABS: BUN/Creatinine Ratio 22 (6-26); Blood Urea Nitrogen 19 mg/dL (8-23); Calcium 9.3 mg/dL (8.6-10.3); Carbon Dioxide 26 mEq/L (23-29); Chloride 108 mEq/L (98-107); Glucose 138 mg/dL (70-105); Magnesium 2.1 mg/dL (1.6-2.6); Osmolality,Calculated 298 (280-300); Potassium 3.5 mEq/L (3.5-5.1); Sodium 142 mEq/L (136-145); eGFR For Non-African Americans > 60 (> 60)
[2019-01-19] MEDS: Lisinopril-HCTZ 20-12.5mg TABLET PO SCH (08:24)
[2019-01-19] MEDS: Aspirin Enteric Coated 81 MG Tablet PO SCH (08:25)
[2019-01-19] MEDS: Insulin LISPRO 300 UNITS/3 ML VIAL SQ SCH ×3 (11:31→15:41)
--- NOTE | 2019-01-19 11:37 | Cardiology Progress Note ---
Date of Encounter: 01/19/19 Time of Encounter: 11:35 Assessment and Plan (1) NSTEMI (non-ST elevated myocardial infarction) Current Visit: Yes Status: Acute Per Cardiology: Peak troponin 1.22. S/p MUSA proximal LAD, Proximal Circ, OM1, and OM2. DAPT (ASA and Plavix). Pt is on Xarelto for PAF. Triple therapy x 1 month, then will plan to stop ASA. Continue BB, Statin, ACEi. EF preserved on echo. CP free. Denies any active bleeding or blood loss. (2) Atrial fibrillation with RVR Current Visit: Yes Status: Acute Per Cardiology: Known hx of PAF. DCCV in 2014. Home med included Sotalol 120mg BID. Anticoagulated on Xarelto. Presented in A-Fib RVR rate 140s. Increased Sotalol to 160mg BID--s/p 4 doses. Converted back to SR evening of 01/17. ECG this am shows SR with QTc 459ms (stable). Telemetry reviewed with average heart rate 72, currently sinus rhythm in the 70s. 5th dose due this evening, vocera QTc results to professor of astronomy fundraising manager, if remains stable, anticipate would be ok to proceed with DC to home as outlined. Outpatient f/u arranged if DC tonight. Discussion w patient/family: The assessment and plan as outlined above was discussed with the patient and/or family members who expressed understanding and agreement. All questions were answered. Thank you for involving us in the care of your patient. Please call with any questions. Subjective Principal diagnosis: NSTEMI, CAD, A-Fib Interval history: Denies any chest pain, short of breath, palpitations. Denies any right groin concerns. Eager for discharge home today after sotalol dose. Objective Vital Signs, Last 4 Hours Temp Pulse Resp BP Pulse Ox 01/19/19 11:33 98.6 F 69 18 118/77 98 General: Conversant, No Apparent Distress HEENT: Atraumatic, Normocephaly, Mucus Membranes Moist Neck: No JVD, Normal carotid pulses Cardiac: Reg Rate and Rhythm, Normal S1 and S2, No Murmur Lungs: Normal Breath Sounds, No Wheeze, Rales, Rhonchi Neuro: Alert and responsive, No focal deficits noted Abdomen: Soft, Non-Tender Skin: No rashes noted on visualized skin, Other (Right groin site, no hematoma, no bleeding, no ecchymosis) Musculoskeletal: No Chest Wall Tenderness Extremities: No Clubbing, No Cyanosis, No Edema, Normal Pulses Results 01/18/19 06:56 01/19/19 02:32 Lab Results Laboratory Tests 01/16/19 01/17/19 01/19/19 12:11 02:29 02:32 Creatinine 0.85 Est GFR (Non-Af Amer) > 60 Troponin I 1.22 H* TSH 0.707 ITS Impressions Chest X-Ray 01/16/19 07:09 IMPRESSION: No acute cardiopulmonary disease. D/ / 01/16/2019 08:42:28 [facility] Inter[facility] Provider: Geo Chavarria MD Echocardiogram 01/18/19 00:00 Impressions: LVEF 60-65%. Normal right ventricular structure and function. Mild-moderate mitral regurgitation. Mild-moderate aortic regurgitation. Mild tricuspid regurgitation. Borderline pulmonary hypertension. Left Ventricular Wall Motion: Rest Echo Findings All wall segments showed normal motion. Findings: Study Quality * Technically adequate exam. ECG Findings * Normal sinus rhythm. Left Ventricle * LVEF 60-65%. * Mild left ventricular diastolic dysfunction. * Normal LV chamber size, wall thickness and function. Right Ventricle * Normal right ventricular structure and function. Left Atrium * Moderate-severely dilated left atrium. Right Atrium * Normal right atrial size. Mitral Valve * Moderate mitral annular calcification * No mitral stenosis. * Mild-moderate mitral regurgitation. * Normal mitral valve structure. Aortic Valve * Trileaflet aortic valve. * No aortic stenosis. * Mild-moderate aortic regurgitation. Tricuspid Valve * Tricuspid valve not well visualized. * Mild tricuspid regurgitation. * Estimated RA pressure is 8 mmHg. * Estimated RVSP is 35 mmHg. * Borderline pulmonary hypertension. Pulmonic Valve * Pulmonic valve is not well visualized. * No pulmonic stenosis. * No pulmonic regurgitation. Pulmonary Artery * Pulmonary artery not well visualized. Aorta * Normally sized aortic root. Pericardium * There is no pericardial effusion present. Interatrial Septum * No evidence of PFO by color Doppler. IVC * The IVC is dilated. * > 50% respiratory change Active Medications Acetaminophen (Tylenol) 650 mg PO Q6HR PRN PRN Reason: Mild Pain/Fever Stop: 07/18/19 11:22 Aspirin (Aspirin Ec) 81 mg PO DAILY [facility] Stop: 07/19/19 09:01 Last Admin: 01/19/19 08:25 Dose: 81 mg Documented by: Atorvastatin Calcium (Lipitor) 80 mg PO HS [facility] Stop: 07/19/19 21:01 Last Admin: 01/18/19 20:34 Dose: 80 mg Documented by: Clopidogrel Bisulfate (Plavix) 75 mg PO DAILY [facility] Stop: 07/20/19 09:01 Last Admin: 01/19/19 08:25 Dose: 75 mg Documented by: Dextrose/Water (Dextrose 50% (Syg)) 25 ml IVP AD PRN PRN Reason: Hypoglycemia Stop: 07/18/19 11:33 Docusate Sodium (Colace) 100 mg PO BID PRN PRN Reason: Constipation Stop: 07/18/19 21:01 Glucagon (Glucagen) 1 mg IM ONCE PRN PRN Reason: Hypoglycemia Stop: 07/18/19 11:33 Glucose (Gluctose) 15 gm PO ONCE PRN PRN Reason: Hypoglycemia Stop: 07/18/19 11:33 Glucose (Gluctose) 30 gm PO ONCE PRN PRN Reason: Hypoglycemia Stop: 07/18/19 11:33 Lisinopril/HCTZ (Prinzide 20-12.5) 1 each PO DAILY [facility] Stop: 07/19/19 09:01 Last Admin: 01/19/19 08:24 Dose: 1 each Documented by: Dextrose (Dextrose 5%) 1,000 mls @ 100 mls/hr IVC .Q10H PRN PRN Reason: HYPOGLYCEMIA Stop: 07/18/19 11:33 Insulin Human Lispro (Humalog) 0 units SQ HS [facility]; Protocol Stop: 07/18/19 21:01 Last Admin: 01/18/19 21:05 Dose: Not Given Documented by: Insulin Human Lispro (Humalog) 0 units SQ TIDAC [facility]; Protocol Stop: 07/18/19 16:31 Last Admin: 01/19/19 11:32 Dose: Not Given Documented by: Metoprolol Tartrate (Lopressor) 25 mg PO BID [facility] Stop: 07/19/19 09:01 Last Admin: 01/19/19 08:25 Dose: 25 mg Documented by: Naloxone HCl (Narcan) 0.4 mg IVP Q2MPRN PRN PRN Reason: SEE COMMENTS Stop: 07/18/19 11:22 Ondansetron HCl (Zofran) 4 mg IVP Q6HR PRN PRN Reason: Nausea And Vomiting Stop: 07/18/19 11:22 Rivaroxaban (Xarelto) 20 mg PO 1700 [facility] Stop: 07/19/19 20:01 Last Admin: 01/18/19 18:41 Dose: 20 mg Documented by: Sotalol HCl (Betapace) 160 mg PO Q12HR [facility] Stop: 07/19/19 18:01 Last Admin: 01/19/19 06:33 Dose: 160 mg Documented by: - Imaging and Cardiology Echo: report reviewed Cardiac cath: report reviewed Consult Discharge Plan - Plan Instructions: Myocardial Infarction (DC), Atrial Fibrillation (DC), Left Heart Catheterization (DC), Diabetes Mellitus Type 2 in Adults (DC), Chronic Hypertension (DC) Referrals: Ariel Aden DO [Primary Care Provider] - 01/26/19 1:45 pm Gia Jimenez, MARKET RESEARCH INTERN [Advanced Practice Nurse] - (office to call patient at home with follow up appointment) Prescriptions: Sotalol [Betapace] 160 mg PO Q12HR #120 tablet Atorvastatin [Lipitor] 80 mg PO HS #60 tablet Metoprolol [Lopressor] 25 mg PO BID #60 tablet Clopidogrel [Plavix] 75 mg PO DAILY #30 tablet
--- NOTE | 2019-01-19 12:08 | Discharge Summary ---
- NOTES TO OUTPATIENT PROVIDER Notes to Outpatient Provider: Follow with cardiology as an outpatient Orders not resulted at time of discharge: Pending orders 01/16/19 08:10 EKG [ECG 12 lead ECG] [ECG] Stat 01/18/19 06:00 ECG 12 lead ECG [ECG] AM 0600 ECG 12 lead ECG [ECG] AM 0600 01/19/19 06:00 ECG 12 lead ECG [ECG] AM 0600 01/20/19 06:00 ECG 12 lead ECG [ECG] AM 0600 Date of Encounter: 01/19/19 Time of Encounter: 09:15 - Discharge Diagnosis (1) NSTEMI (non-ST elevated myocardial infarction) Priority: Primary Status: Acute (2) Atrial fibrillation Priority: Secondary Status: Acute Qualifiers: Atrial fibrillation type: paroxysmal Qualified Code(s): I48.0 - Paroxysmal atrial fibrillation (3) CAD (coronary artery disease) Priority: Secondary Status: Chronic Qualifiers: Coronary Disease-Associated Artery/Lesion type: [place] artery [place] vs. transplanted heart: [place] heart Associated angina: without angina Qualified Code(s): I25.10 - Atherosclerotic heart disease of [place] coronary artery without angina pectoris (4) HLD (hyperlipidemia) Priority: Secondary Status: Chronic Qualifiers: Hyperlipidemia type: unspecified Qualified Code(s): E78.5 - Hyperlipidemia, unspecified (5) HTN (hypertension) Priority: Secondary Status: Chronic Qualifiers: Hypertension type: essential hypertension Qualified Code(s): I10 - Essential (primary) hypertension (6) Diabetes Priority: Secondary Status: Chronic Qualifiers: Diabetes mellitus type: type 2 Diabetes mellitus intermediate designer insulin use: without intermediate designer use Diabetes mellitus complication status: with unspecified complications Qualified Code(s): E11.8 - Type 2 diabetes mellitus with unspecified complications (7) DVT prophylaxis Priority: Secondary Status: Acute Hospital course: Mr. Hinojosa is a 68 year old male with history of CAD, atrial fibrillation on Xarelto, was admitted for NSTEMI and afib with RVR. Underwent LHC on 01/17 which show severe double vessel disease and received MUSA to pLAD, pLCX, OM1, and OM2. Echocardiogram was unremarkable. As for his A. fib, sotalol dose was increased to 160 mg twice a day after which eventually converted to normal sinus rhythm. He received 5 doses prior to discharge with daily EKG and cardiology evaluation. He will be discharged home on DAPT, bb, statin, Horacio-i, Xarelto with a plan to d/c ASA after 1 month to prevent triple therapy. Pt is to follow up with cardiology as an outpatient. Discharge discussed with: patient, nurse, new home sales consultant - Time Spent with Patient Total time spent providing and/or coordinating discharge services: 33 mins - Discharge Medications Prescriptions: New Sotalol [Betapace] 160 mg PO Q12HR #120 tablet Atorvastatin [Lipitor] 80 mg PO HS #60 tablet Metoprolol [Lopressor] 25 mg PO BID #60 tablet Clopidogrel [Plavix] 75 mg PO DAILY #30 tablet Continued Rivaroxaban [Xarelto] 20 mg PO DAILY Lisinopril-HCTZ 20-12.5 [Prinzide 20-12.5] 1 tab PO BID Aspirin [Adult Aspirin Regimen] 81 mg PO QAM Metformin HCl [Glucophage] 500 mg PO BIDWM Discontinued Diltiazem HCl [Diltiazem ER] 180 mg PO DAILY Sotalol HCl [Betapace AF] 120 mg PO BID No Action Pravastatin Sodium [Pravachol] 80 mg PO HS Home Medications: Pravastatin Sodium [Pravachol] 80 mg PO HS 07/09/15 [History] Rivaroxaban [Xarelto] 20 mg PO DAILY 07/09/15 [History] Aspirin [Adult Aspirin Regimen] 81 mg PO QAM 01/16/19 [History] Lisinopril-HCTZ 20-12.5 [Prinzide 20-12.5] 1 tab PO BID 01/16/19 [History] Metformin HCl [Glucophage] 500 mg PO BIDWM 01/16/19 [History] Atorvastatin [Lipitor] 80 mg PO HS #60 tablet 01/19/19 [Rx] Clopidogrel [Plavix] 75 mg PO DAILY #30 tablet 01/19/19 [Rx] Metoprolol [Lopressor] 25 mg PO BID #60 tablet 01/19/19 [Rx] Sotalol [Betapace] 160 mg PO Q12HR #120 tablet 01/19/19 [Rx] Allergies/Adverse Reactions: Allergy/AdvReac Type Severity Reaction Status Date / Time No Known Allergies Allergy Verified 01/16/19 16:40 Date of admission: 01/17/19 15:25 Primary care physician: Ihsan Aden DO Consults: 01/16/19 08:25 Consult to Cardiology [CONS] Stat Comment: Consulting Provider: Cardiology Arelis Reason for Consult: atrial fibrillation Time Notified: 08:25 Call Completed: Yes 01/17/19 15:46 Consult to Cardiac Rehabilitation-Phase1 [CONS] Routine Comment: Reason for Consult: post op PCI Call Completed: Yes - Constitutional Vitals: Temp Pulse Resp BP Pulse Ox 98.6 F 69 18 118/77 98 01/19/19 11:33 01/19/19 11:33 01/19/19 11:33 01/19/19 11:33 01/19/19 11:33 General appearance: Present: cooperative, A&O X 3, pleasant, no acute distress, answers questions appropriately Exam: General: Patient is alert, oriented, no acute distress Respiratory: Good respiratory effort. Bilateral breath sounds are clear without wheezing, crackles, or rhonchi. Cardiovascular: regular rhythm and rate. Abdomen: soft, non-tender MSK: R groin dressing c/d/i, distal pulses intact Neuro: Alert and oriented x4. No focal deficit - Patient Status Disposition: Home, Self-Care Condition: Fair Functional capacity at discharge: independent ambulation Overall status at discharge: patient is progressing back to baseline - Discharge Instructions Instructions: Myocardial Infarction (DC), Atrial Fibrillation (DC), Left Heart Catheterization (DC), Diabetes Mellitus Type 2 in Adults (DC), Chronic Hypertension (DC) Follow Up With: Ariel Aden DO [Primary Care Provider] - 01/26/19 1:45 pm Gia Jimenez, FEDER[employer] APPELLATE CLERK [Advanced Practice Nurse] - (office to call patient at home with follow up appointment) - Diet and Activity Activity: resume usual activities as tolerated Diet: diabetic diet, low salt diet
[2019-01-19] MEDS: *HR* Rivaroxaban 10 MG TABLET PO SCH (17:31)
[2019-01-19 19:23] VITALS: BP 156/92
--- NOTE | 2019-01-20 09:50 | Event Note ---
Date of Encounter: 01/20/19 Time of Encounter: 09:50 - Cardiology Event Note Later Entry: I received a [employer] message from hospitalist group yesterday evening regarding plans for discharge. Discussed with nursing staff and ECG showed sinus rhythm with QTC of 452 ms after 5th dose of sotalol. Discharge summarywas already completed per hospitalist. Order to proceed with discharge to home placed.
--- NOTE | 2019-01-20 17:29 | Electrocardiograph Report ---
[place] [id number] Test Date: 2019-01-19 Pat Name: Jorge A Hinojosa Department: 115 Room: 3A32 Gender: M Incident Manager: : [id number] Requested By: Grover Valero Order Number: [id number] Reading MD: Manuel Lyn Measurements Intervals [place] Rate: 73 P: 62 SC: 156 QRS: 31 QRSD: 95 T: 53 QT: 426 QTc: 452 Interpretive Statements SINUS RHYTHM NONSPECIFIC T-WAVE ABNORMALITY Electronically Signed On 01-20-2019 17:27:37 EDT by Manuel Lyn
== END 2019-01-19 20:03 | disposition home or self-care (01) | DRG 246 ==
LOC: EMEROOARM 07:08 → INTOOBSV 09:17 → 2SOUTHHOLD 09:17 → 2ANU 09:21 → SUATTDRO 01-17 15:25 → 2NNU 01-17 15:59 → 3ANU 01-19 17:48
PROVIDERS: ADMIT Internal Medicine Nephrology; ATTEND Internal Medicine